=== PATIENT | male | born 1955 | race Caucasian/White ===

== ENCOUNTER 2017-06-27 10:56 | Inpatient (IN) ==
[2017-06-27 12:04] LABS: Basophils # 0.1 K/mcL (0.0-0.2); Basophils % 0.8 %; Eosinophils # 0.3 K/mcL (0.0-0.6); Eosinophils % 3.3 %; Hematocrit 39.8 % (37.5-50.1); Hemoglobin 12.9 g/dL (12.9-16.9); Immature Granulocytes % 0.3 % (0-4); Lymphocytes # 2.4 K/mcL (0.6-4.6); Lymphocytes % 29.7 %; Mean Corpuscular HGB Conc 32.4 g/dL (31.6-35.5); Mean Corpuscular Hemoglobin 29.7 pg (28.0-33.3); Mean Corpuscular Volume 91.7 fL (83.0-100.0); Mean Platelet Volume 9.8 fL (9.4-12.4); Monocytes # 0.6 K/mcL (0.0-1.3); Monocytes % 7.5 %; Neutrophils # 4.6 K/mcL (1.6-8.9); Platelet Count 251 K/mcL (140-400); Red Blood Count 4.34 M/mcL (4.19-5.50); Red Cell Distribution Width 13.3 % (11.5-14.5); Segmented Neutrophils % 58.4 %
[2017-06-27 12:06] LABS: Prothrombin Time 11.1 Seconds (9.4-12.1)
--- NOTE | 2017-06-27 12:06 | Emergency Department Note ---
Disposition Clinical Impression: Inability to walk, Spinal stenosis, lumbar region Disposition: Admitted As Inpatient Condition: Good Referrals: Koffi Bustamante DO [Primary Care Provider] - Forms: ED Satisfaction Letter Time of Disposition: 17:33 Fall HPI - General Chief Complaint: ED Fall Stated Complaint: fall Time Seen by Provider: 06/27/17 11:01 Source: patient, EMS Mode of arrival: EMS Limitations: no limitations Nursing Notes Reviewed: Yes Vital Signs Reviewed: Yes - History of Present Illness HPI Narrative: 61 yaer old male presents to the ED s/p falling off his couch and being on the ground since 0300 this morning. He states that he has chronic sciatica and back problems. Most recently her had a fusion of his cervical spine and had a procedure done on his lumbar area as well from a ortho doc from [place]. Since his surgeries in April he has had increased falls and is now walking with a walker and just last night when he went to use the bathroom in a jug while he was in the garage he slipped off the couach and then was no longer able to get up. Amita states that his right leg is heavy and has lost some motor function and his at bedside states that he has a had about 25-30 falls, and before this was ambulatory and it is getting worse He was not found unil 0930 this morning and then brought to the ED. He states tht he is now having some numbness and tinlging in his right arm from his neck. They were trying to get clearance from his insurance for MRI to evaluate his neuro defecits. - Related Data Home Medications Medication Instructions Recorded Confirmed BuPROPion XL (24 HR) [Wellbutrin 450 mg PO DAILY 06/27/17 06/27/17 XL] Cyclobenzaprine [Flexeril] 10 mg PO TID 06/27/17 06/27/17 DULoxetine [Cymbalta] 90 mg PO DAILY 06/27/17 06/27/17 Diclofenac Sodium (24 HR) 100 mg PO DAILY 06/27/17 06/27/17 [Voltaren XR] Fenofibrate Nanocrystallized 145 mg PO DAILY 06/27/17 06/27/17 [Tricor] HYDROcodone/Acet 7.5/325 mg [[place] 1 tab PO TID PRN 06/27/17 06/27/17 7.5-325 mg] [place]-3/Dha/Epa/Fish Oil [Fish Oil 2,000 mg PO DAILY 06/27/17 06/27/17 1,000 mg Softgel] Simvastatin [Zocor] 40 mg PO HS 06/27/17 06/27/17 Allergies Allergy/AdvReac Type Severity Reaction Status Date / Time No Known Allergies Allergy Verified 06/27/17 15:05 Constitutional: Denies: fever, chills, weakness, weight change Eyes: Denies: eye pain, eye discharge, vision change ENT ED: Denies: ear pain, throat pain, dental pain, hearing loss, epistaxis, congestion, dysphagia Cardiovascular: Denies: chest pain, palpitations, dyspnea on exertion, edema, syncope Respiratory: Denies: cough, dyspnea, wheezes, hemoptysis, stridor Gastrointestinal: Denies: abdominal pain, nausea, vomiting, diarrhea, constipation, hematemesis, melena, hematochezia Genitourinary: Denies: urgency, dysuria, frequency, hematuria Musculoskeletal: Reports: back pain, neck pain. Denies: arthralgia, myalgia Integumentary: Denies: rash, abrasion, lesions Neurological: Reports: weakness, numbness, paresthesias. Denies: headache, confusion, vertigo Psychiatric: Denies: anxiety, depression, suicidal thoughts, homicidal thoughts , auditory hallucinations, visual hallucinations Endocrine: Denies: fatigue Hematological/Lymphatic: Denies: easy bleeding, easy bruising Allergic/Immunologic: Denies: facial swelling, urticaria Fall PMH - Past Medical History Medical history: Reports: arthritis Psychiatric history: Reports: no psych history - Social History Smoking Status: Never smoker Alcohol use: Reports: occasionally Drug use: Reports: none Physical Exam - General Limitations: no limitations General appearance: alert, in no apparent distress - Head Head exam: atraumatic, normocephalic, normal inspection - Eye Eye exam: Present: normal appearance, PERRL, EOMI - Expanded Eye Exam Pupils: Left: reactive - ENT ENT exam: normal exam, normal oropharynx, mucous membranes moist - Expanded ENT Exam External ear exam: Present: normal external inspection Mouth exam: Present: normal external inspection Teeth exam: Present: normal inspection Throat exam: Present: normal inspection - Neck Neck exam: Present: normal inspection, full ROM, trachea midline - Chest Chest inspection: Present: normal inspection, symmetric chest wall rise - Respiratory Respiratory exam: Present: normal lung sounds bilaterally - Cardiovascular Cardiovascular exam: Present: regular rate, normal rhythm, normal heart sounds - Abdominal Exam Abdominal exam: Present: soft, Non-Tender. Absent: tenderness, distention, guarding, rebound, rigidity - Extremities Exam Extremities exam: Present: normal inspection, full ROM. Absent: tenderness, pedal edema - Expanded Upper Extremity Exam Shoulder exam: Present: normal inspection, full ROM Arm exam: Present: normal inspection, full ROM Elbow exam: Present: normal inspection, full ROM Forearm/Wrist exam: Present: normal inspection, full ROM Hand exam: Present: normal inspection, full ROM Vascular exam: Normal: capillary refill, radial pulse - Expanded Lower Extremity Exam Hip/Pelvis exam: Present: normal inspection, full ROM Upper leg exam: Present: normal inspection, full ROM Knee exam: Present: normal inspection, full ROM Lower leg exam: Present: normal inspection, full ROM Ankle exam: Present: normal inspection, full ROM Foot/toe exam: Present: normal inspection, full ROM Neurovascular/Tendon exam: Present: normal capillary refill, motor deficit ( decreased reflexes/strength in right lower leg ). Absent: sensory deficit, tendon deficit Gait: other (unable to walk) - Back Exam Back exam: Present: normal inspection, full ROM. Absent: tenderness - Neurological Exam Neurological exam: Present: alert, oriented X3 - Expanded Neurological Exam Patient oriented to: Present: person, place, time Speech: Present: fluid speech Cranial nerves: EOM function (II, III, IV, ): Normal, facial sensation (V): Normal, facial palsy (VII): Normal, gag reflex (IX): Normal, spinal accessory function (XI): Normal, tongue deviation (XII): Normal Cerebellar function: finger to nose: Normal, heel to daugherty: Normal Motor strength - LUE: 4/5 Motor strength - RUE: 3/5 Motor strength - LLE: 4/5 Motor strength - RLE: 3/5 Upper motor neuron exam: heath neglect: Absent bilaterally, pronator drift: Absent bilaterally, Babinski sign: Absent bilaterally, sensory extinction: Absent bilaterally Sensory exam upper extremity: light touch: Normal, pin prick: Normal Sensory exam lower extremity: light touch: Normal, pin prick: Normal DTR: brachioradialis (L): 2+, brachioradialis (R): 1+, patellar (L): 2+, patellar (R): 1+ Coma Scale Eye Opening: Spontaneous Coma Scale Motor Response: Obeys Commands Coma Scale Verbal Response: Oriented Coma Scale Total: 15 - Psychiatric Psychiatric exam: Present: normal affect, normal mood - Skin Skin exam: Present: warm, dry, intact, normal color Course Course Narrative: we will do MR of the entire spine in addiition to labwork to rule ot rhabdo in addition to CT head/neck for trauma eval - Reevaluation(s) Reevaluation #1: updated patinet on results. We are waiting on consult Time: 15:32 - Consultations Consultation #1: discussed case with Ynes (Dr. Loaiza nurse) and he will come down to evaluate patient in the Ed Time: 15:32 Consultation #2: discussed case with Dr. Eddy and he will see patient as consutl with admission to medicine Time: 18:29 Vital Signs Temperature 97.9 F 06/27/17 10:59 Pulse Rate 65 06/27/17 10:59 Respiratory Rate 18 06/27/17 10:59 Blood Pressure 137/86 06/27/17 10:59 O2 Sat by Pulse Oximetry 100 06/27/17 10:59 Temperature 97.9 F 06/27/17 10:59 Pulse Rate 65 06/27/17 10:59 Respiratory Rate 18 06/27/17 10:59 Blood Pressure 137/86 06/27/17 10:59 O2 Sat by Pulse Oximetry 100 06/27/17 10:59 Fall - Lab Data Result diagrams: 06/27/17 11:35 06/27/17 11:35 Lab Results 06/27/17 06/27/17 06/27/17 Range/Units 11:35 11:35 11:35 WBC 7.9 (4.3-11.1) K/mcL RBC 4.34 (4.19-5.50) M/mcL Hgb 12.9 (12.9-16.9) g/dL Hct 39.8 (37.5-50.1) % MCV 91.7 (83.0-100.0) fL MCH 29.7 (28.0-33.3) pg MCHC 32.4 (31.6-35.5) g/dL RDW 13.3 (11.5-14.5) % Plt Count 251 (140-400) K/mcL MPV 9.8 (9.4-12.4) fL Immature Gran % 0.3 (0-4) % Seg Neutrophils % 58.4 % Lymphocytes % 29.7 % Monocytes % 7.5 % Eosinophils % 3.3 % Basophils % 0.8 % Neutrophils # 4.6 (1.6-8.9) K/mcL Lymphocytes # 2.4 (0.6-4.6) K/mcL Monocytes # 0.6 (0.0-1.3) K/mcL Eosinophils # 0.3 (0.0-0.6) K/mcL Basophils # 0.1 (0.0-0.2) K/mcL PT 11.1 (9.4-12.1) Seconds INR 1.0 APTT 29.8 (26.0-36.0) Seconds Sodium (136-145) mEq/L Potassium (3.5-4.5) mEq/L Chloride (98-109) mEq/L Carbon Dioxide (19-29) mEq/L BUN (8-26) mg/dL Creatinine (0.72-1.25) mg/dL Est GFR ( Amer) (> 60) Est GFR (Non-Af Amer) (> 60) BUN/Creatinine Ratio (6-26) Glucose (70-99) mg/dL Calculated Osmolality (280-300) Calcium (8.6-10.8) mg/dL Total Bilirubin (0.2-1.2) mg/dL Direct Bilirubin (0.0-0.5) mg/dL Indirect Bilirubin (0.0-1.2) mg/dL AST (5-34) Units/L ALT (0-55) Units/L Alkaline Phosphatase (38-126) Units/L Creatine Kinase (30-200) Units/L Troponin I (0-0.03) ng/mL B-Natriuretic Peptide < 10 (0-100) pg/mL Serum Total Protein (6.0-8.3) g/dL Albumin (3.5-5.0) g/dL Globulin (2.4-3.5) g/dL Albumin/Globulin Ratio (1.1-2.2) Lipase (8-78) Units/L Urine Color (Yellow) Urine Clarity (Clear) Urine pH (5.0-8.0) pH Units Ur Specific [place] (1.010-1.025) Urine Protein (Neg-Trace) mg/dL Urine Glucose (UA) (Normal) mg/dL Urine Ketones (Negative) mg/dL Urine Blood (Negative) Urine Nitrite (Negative) Urine Bilirubin (Negative) Urine Urobilinogen (Normal) mg/dL Ur Leukocyte Esterase (Negative) Ur Culture Indicated? (NO) 06/27/17 06/27/17 06/27/17 Range/Units 11:35 11:35 12:06 WBC (4.3-11.1) K/mcL RBC (4.19-5.50) M/mcL Hgb (12.9-16.9) g/dL Hct (37.5-50.1) % MCV (83.0-100.0) fL MCH (28.0-33.3) pg MCHC (31.6-35.5) g/dL RDW (11.5-14.5) % Plt Count (140-400) K/mcL MPV (9.4-12.4) fL Immature Gran % (0-4) % Seg Neutrophils % % Lymphocytes % % Monocytes % % Eosinophils % % Basophils % % Neutrophils # (1.6-8.9) K/mcL Lymphocytes # (0.6-4.6) K/mcL Monocytes # (0.0-1.3) K/mcL Eosinophils # (0.0-0.6) K/mcL Basophils # (0.0-0.2) K/mcL PT (9.4-12.1) Seconds INR APTT (26.0-36.0) Seconds Sodium 138 (136-145) mEq/L Potassium 3.8 (3.5-4.5) mEq/L Chloride 102 (98-109) mEq/L Carbon Dioxide 27 (19-29) mEq/L BUN 14 (8-26) mg/dL Creatinine 1.03 (0.72-1.25) mg/dL Est GFR ( Amer) > 60 (> 60) Est GFR (Non-Af Amer) > 60 (> 60) BUN/Creatinine Ratio 14 (6-26) Glucose 96 (70-99) mg/dL Calculated Osmolality 286 (280-300) Calcium 9.8 (8.6-10.8) mg/dL Total Bilirubin 0.3 (0.2-1.2) mg/dL Direct Bilirubin 0.2 (0.0-0.5) mg/dL Indirect Bilirubin 0.1 (0.0-1.2) mg/dL AST 27 (5-34) Units/L ALT 25 (0-55) Units/L Alkaline Phosphatase 58 (38-126) Units/L Creatine Kinase 337 H (30-200) Units/L Troponin I 0.00 (0-0.03) ng/mL B-Natriuretic Peptide (0-100) pg/mL Serum Total Protein 7.6 (6.0-8.3) g/dL Albumin 3.8 (3.5-5.0) g/dL Globulin 3.8 H (2.4-3.5) g/dL Albumin/Globulin Ratio 1.0 L (1.1-2.2) Lipase 11 (8-78) Units/L Urine Color Yellow (Yellow) Urine Clarity Clear (Clear) Urine pH 6.5 (5.0-8.0) pH Units Ur Specific [place] 1.015 (1.010-1.025) Urine Protein Negative (Neg-Trace) mg/dL Urine Glucose (UA) Normal (Normal) mg/dL Urine Ketones Negative (Negative) mg/dL Urine Blood Negative (Negative) Urine Nitrite Negative (Negative) Urine Bilirubin Negative (Negative) Urine Urobilinogen Normal (Normal) mg/dL Ur Leukocyte Esterase Negative (Negative) Ur Culture Indicated? NO (NO) - EKG Data EKG attestation: Yes I reviewed and interpreted this EKG. EKG results narrative: NSR with rate of 67. NO STMEI. normal intervals. no old ekg. 1200
[2017-06-27 12:08] LABS: Activated Partial Thrombo Time 29.8 Seconds (26.0-36.0)
[2017-06-27 12:15] LABS: Alanine Aminotransferase 25 Units/L (0-55); Albumin 3.8 g/dL (3.5-5.0); Alkaline Phosphatase 58 Units/L (38-126); Aspartate Amino Transferase 27 Units/L (5-34); BUN/Creatinine Ratio 14 (6-26); Bilirubin,Direct 0.2 mg/dL (0.0-0.5); Bilirubin,Indirect 0.1 mg/dL (0.0-1.2); Bilirubin,Total 0.3 mg/dL (0.2-1.2); Blood Urea Nitrogen 14 mg/dL (8-26); Calcium 9.8 mg/dL (8.6-10.8); Carbon Dioxide 27 mEq/L (19-29); Chloride 102 mEq/L (98-109); Creatine Kinase 337 Units/L (30-200); Globulin 3.8 g/dL (2.4-3.5); Glucose 96 mg/dL (70-99); Lipase 11 Units/L (8-78); Osmolality,Calculated 286 (280-300); Potassium 3.8 mEq/L (3.5-4.5); Sodium 138 mEq/L (136-145); Total Protein 7.6 g/dL (6.0-8.3); eGFR For African Americans > 60 (> 60); eGFR For Non-African Americans > 60 (> 60)
[2017-06-27 12:20] LABS: Bilirubin,Urine Negative (Negative); Blood,Urine Negative (Negative); Clarity,Urine Clear (Clear); Color,Urine Yellow (Yellow); Glucose,Urine (UA) Normal (Normal); Ketones,Urine Negative (Negative); Leukocyte Esterase,Urine Negative (Negative); Nitrite,Urine Negative (Negative); PH,Urine 6.5 pH Units (5.0-8.0); Protein,Urine Negative (Neg-Trace); Specific Gravity,Urine 1.015 (1.010-1.025); Urobilinogen,Urine Normal (Normal)
[2017-06-27] MEDS ORDERED: *HR* Morphine 2 MG/ML SYRINGE IVP ONE (17:32)
--- NOTE | 2017-06-27 21:16 | Internal Med History&Physical ---
<Koffi Delacruz - Last Filed: 06/28/17 04:22> Date of Encounter: 06/28/17 Time of Encounter: 21:00 Assessment and Plan (1) Inability to walk Current visit: Yes Status: Acute Patient does report that he has been having LE weakness for sometime, but that he has an acute worsening recently. He had previously used a walked in order to ambulate, but recently he has been unable to walk at all, even with his walker. He reports that he had a dall last night in which he could not get up and was on the ground for 7 hours. He had recently undergone a surgery in [place] in order to address some of the disk protrusion at that time, but he as continued to have problems. IMPRESSION: No substantial interval change from 05/23/2017. A large disc extrusion at postoperative level of L4-5 results in severe spinal canal stenosis. There is severe bilateral L4 foraminal narrowing. Dr. Eddy was contacted by the ER and he agreed to see the patient will consult neurology Will consult PT/OT (2) Spinal stenosis, lumbar region Current visit: Yes Status: Acute Plan as above (3) Numbness and tingling in both hands Current visit: Yes Status: Acute Patient reports numbness in both hands. Though he reports that this has happened before on account of his spinal stenosis at C3-4 and C4-5 and previous fusions in his cervical spine, he does report that this has been getting worse recently. MRI of his spine showed minimally progressed severe stenosis in the previously affected regions. Plan as above (4) ETOH abuse Current visit: Yes Status: Acute Patient reports drinking 6 beera a day for some time. Will give PO vitamins Start on ativan based CIWA protocol (5) DVT prophylaxis Current visit: Yes Status: Acute Mechanical dvt prophylaxis with intermitten penumatic compression devices (6) Depression Current visit: Yes Status: Chronic Continue home medications Qualifiers: Depression Type: unspecified Qualified Code(s): F32.9 - Major depressive disorder, single episode, unspecified Internal Medicine - H&P: HPI Chief complaint: Inability to walk, worsening neurological symptoms Admitted From: Home Plans for Post Hospital Care: Home History of present illness: Mr. Collado is a 61 year old male with medical history of disk herniations requiring previous cervical spine fusions (15 years ago with additional fusion following later), depression, and osteoarthritis who presents to [facility] after having a fall with inability to walk at home. 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 This is not the first time he has had these symtpoms in his hand, but it is the worst. He states that it had happened about 10 years ago. He has some weakness and decreased sensation in his lower extremities and uses a walker to ambulate, but he can no longer support himself with his walker. He fell last night and was on the floor for 7 hours. He states the weakness extends into his proximal LE muscles. He reports that 4 months ago he had some "clean up" of his spine at a hospital in [place]. He denies having saddle numbness or incontinence. He reports that he has been healthy otherwise with no other major symptoms. Past Med Surg Social Fam HX - Past Medical History Medical history: arthritis Psychiatric history: depression - Social History Smoking Status: Never smoker Smokeless Tobacco Status: No Alcohol use: occasionally Drug use: none - Family History Father Living Status: Cause of : Cancer (stomach) Hx Family Cancer: Yes Mother Living Status: Cause of : Stroke Internal Medicine - H&P: Meds BuPROPion XL (24 HR) [Wellbutrin XL] 450 mg PO DAILY 06/27/17 [History] Cyclobenzaprine [Flexeril] 10 mg PO TID 06/27/17 [History] DULoxetine [Cymbalta] 90 mg PO DAILY 06/27/17 [History] Diclofenac Sodium (24 HR) [Voltaren XR] 100 mg PO DAILY 06/27/17 [History] Fenofibrate Nanocrystallized [Tricor] 145 mg PO DAILY 06/27/17 [History] HYDROcodone/Acet 7.5/325 mg [[place] 7.5-325 mg] 1 tab PO TID PRN 06/27/17 [ History] [place]-3/Dha/Epa/Fish Oil [Fish Oil 1,000 mg Softgel] 2,000 mg PO DAILY 06/27/17 [History] Simvastatin [Zocor] 40 mg PO HS 06/27/17 [History] 3 Allergy/AdvReac Type Severity Reaction Status Date / Time No Known Allergies Allergy Verified 06/27/17 15:05 Review of systems: Gen: Denies fever, denies chills, denies weakness, denies fatigue CV: Denies chest pain, denies exertional chest pain or dyspnea, denies palpitations Resp: Denies shortness of breath, denies dyspnea, denies pleuritic pain, denies coughing GI: Denies nausea, denies vomiting, denies abdominal pain, denies constipation, denies diarrhea, denies hematochezia, denies melena MSK: denies arthralgia, reports muscle weakness Neuro: Denies headache, denies confusion, reports focal weakness as above, reports numbness/tingling, denies vision changes Skin: Denies bruising, denies rash, reports jigger bites to right lower extremity : Denies flank pain, denies dysuria, denies hematuria - Constitutional Vitals: Temp Pulse Resp BP Pulse Ox 98.3 F 83 16 140/86 94 06/27/17 19:53 06/27/17 19:53 06/27/17 19:53 06/27/17 19:53 06/27/17 19:53 Exam: General: Cooperative, pleasant, no acute distress, alert and oriented 3, answers questions appropriately HEENT: Normocephalic, atraumatic, neck supple, trachea midline, Conjunctiva pink , sclera anicteric, EOMI, PERRL, oral mucosa moist, no orophargeal erythema or exudates Respiratory: No accessory muscle usage, clear to auscultation bilaterally, no wheezes/rhonchi/rales appreciated Cardiovascular: Regular rate and rhythm, S1 and S2 present, no murmurs/rubs/ gallops/clicks appreciated GI/abdominal: Nondistended, nontender, soft, normal bowel sounds, no peritoneal signs Extremities: No calf tenderness, noncyanotic, no pedal edema appreciated, warm, lower extremity pulses palpable and symmetrical Neurological: Alert and oriented 3, no facial droop, no focal deficits, cranial nerves II through XII grossly intact without deficits, 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 Collado is a 61 year old male All Systems PM: A 10-system review of systems was performed and is negative for pertinent findings except as documented above in the HPI. - Constitutional Vitals: Temp Pulse Resp BP Pulse Ox 98.0 F 71 16 114/66 96 06/28/17 04:51 06/28/17 04:51 06/28/17 04:51 06/28/17 04:51 06/28/17 04:51 Internal Med - H&P Results - Labs CBC & Chem 7: 06/27/17 11:35 06/27/17 11:35 - Attending Attestation I examined this patient and my medical decision-making was reviewed with the Resident Physician. I agree with the documented findings, disposition and treatment plan as described except to the extent set forth below. Patient is a 61-year-old male with past medical history of chronic back pain, degenerative disc disease, arthritis and depression. He presents to the ED with complaints of back pain, inability to walk and numbness and tingling of both hands. MRI of the spine revealed large disc extrusion at postop level of L4-L5, with severe spinal stenosis. Patient also has severe bilateral L4 foraminal narrowing. His numbness and tingling of both hands likely due to cervical spinal stenosis. Orthopedics will evaluate patient in the morning. Continue [place] for back pain and Flexeril as needed for muscle spasm. Patient has no other complaints at this time. Heart rate 71, blood pressure 114/66, O2 sat 96 on room air. Heart S1-S2 positive. Lungs bilateral good entry. Abdomen soft nontender no muscle guarding. Extremities audible stridor, no edema. Patient is awake and alert and able to provide history.
[2017-06-27] MEDS ORDERED: Acetaminophen 325 MG TABLET PO PRN (21:19)
[2017-06-27] MEDS ORDERED: Naloxone 0.4 MG/ML INJ IVP PRN (21:19)
[2017-06-27] MEDS ORDERED: Ondansetron 4 MG/2 ML VIAL IVP PRN (21:19)
[2017-06-27] MEDS ORDERED: *HR* LORazepam 2 MG/ML VIAL IVP PRN ×3 (21:21)
[2017-06-27] MEDS: 0.9 % Sodium Chloride 1,000 ML IVC SCH (22:16)
[2017-06-27] MEDS: Vitamin B Complex/Vit C/Vit E 1 EACH TABLET PO SCH (22:16)
[2017-06-27] MEDS ORDERED: Thiamine (B-1) 100 MG in D5% in Water 50 ML IVPB SCH (23:45)
[2017-06-28] MEDS: *HR* HYDROcodone/Acet 7.5/325 mg TABLET PO PRN ×2 (04:18→15:02)
[2017-06-28] MEDS: BuPROPion XL (24 HR) 150 MG TABLET PO SCH (08:04)
[2017-06-28] MEDS: Fenofibrate 54 MG TABLET PO SCH (08:05)
[2017-06-28] MEDS: Diclofenac Sodium (24 HR) 100 MG TABLET PO SCH (08:05)
[2017-06-28] MEDS: Folic Acid 1 MG TABLET PO SCH (08:05)
[2017-06-28] MEDS: Vitamin B Complex/Vit C/Vit E 1 EACH TABLET PO SCH (08:05)
[2017-06-28] MEDS: (Omega-3/Dha/Epa/Fish Oil [Fish Oil 1,000 Mg Softgel]) PO SCH (08:06)
--- NOTE | 2017-06-28 10:54 | Internal Med Progress Note ---
Date of Encounter: 06/28/17 Time of Encounter: 10:51 - Assessment and plan (1) Ambulatory dysfunction Current Visit: Yes Status: Acute Assessment and plan: Reviewed MRI of Cervical, Thorasic and Lumbar spines mostly due to severe spinal stenosis in both Cervical and Lumbar spine region s/p recent Cervical spinal fusion and Lumbar laminectomry will obtain records from [place], [place] waiting on out Surgeon Dr. Surjit carrasco Cont anti spasmodic and analgesics (2) Numbness and tingling in both hands Current Visit: Yes Status: Acute Assessment and plan: see above (3) Spinal stenosis, lumbar region Current Visit: Yes Status: Acute Assessment and plan: see above (4) Cervical spinal stenosis Current Visit: Yes Status: Acute Assessment and plan: see above (5) Alcohol dependence Current Visit: Yes Status: Acute Assessment and plan: Had last alcohol 4 days ago cont CIWA protocol..close monitoring Counseled to quit drinking cont banana bag for now Qualifiers: Qualified Code(s): F10.20 - Alcohol dependence, uncomplicated (6) DVT prophylaxis Current Visit: Yes Status: Acute Assessment and plan: on SCD's (7) Depression Current Visit: Yes Status: Chronic Assessment and plan: resumed home meds Qualifiers: Depression Type: unspecified Qualified Code(s): F32.9 - Major depressive disorder, single episode, unspecified - Subjective Interval history: Mr. Collado is a 61 year old male with medical history of disk herniations requiring previous cervical spine fusions (15 years ago with additional fusion following later), depression, and osteoarthritis who presents to [place] after having a fall with inability to walk at home. 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 This is not the first time he has had these symptoms in his hand, but it is the worst. He states that it had happened about 10 years ago. He has some weakness and decreased sensation in his lower extremities and uses a walker to ambulate, but he can no longer support himself with his walker. He fell last night and was on the floor for 7 hours. He states the weakness extends into his proximal LE muscles. He denies having saddle numbness or incontinence. Pt was admitted here for severe low back pain with weakness in Rt leg. He did mention he has Cervical fusion surgery done in February 2017 at [place], [place] also had Lumbar laminectomy a month later at same institute. However his pain and weakness seems to be still the same, no improvement noticed. Pt also sated he drinks alcohol on daily basis, 6 beers / day, had last alcohol 4 days ago. Denied any CP / SOB - Constitutional Vitals: Temp Pulse Resp BP Pulse Ox 97.8 F 87 16 109/58 96 06/28/17 09:50 06/28/17 09:50 06/28/17 09:50 06/28/17 09:50 06/28/17 09:50 General appearance: Present: mild distress (with pain), A&O X 3, answers questions appropriately - Head Head exam: Present: atraumatic, normal inspection - Respiratory Respiratory exam: Present: decreased breath sounds. Absent: rales, respiratory distress, rhonchi, wheezes - Cardiovascular Cardiovascular exam: Present: RRR, +S1, +S2. Absent: diastolic murmur, gallop, rubs, systolic murmur - GI/Abdominal GI/Abdominal exam: Present: normal bowel sounds, soft, no peritoneal signs. Absent: distended, tenderness - Extremities Exam Extremities exam: Absent: calf tenderness, pedal edema, tenderness - Back Exam Back exam: Absent: CVA tenderness (L), CVA tenderness (R) Additional comments: nicely healed surgical scar over lumbar region - Neurological Exam Neurological exam: Present: alert, motor sensory deficit (in Both Rt UE and Rt leg), oriented X3. Absent: strengths equal and symetr throughout, facial droop , speech deficit - Psychiatric Psychiatric exam: Present: normal affect, normal mood Internal Medicine: Result - Labs CBC & Chem 7: 06/27/17 11:35 06/27/17 11:35 - ABG Interpretation ABG results: PT/INR, D-dimer PT 11.1 Seconds (9.4-12.1) 06/27/17 11:35 - VTE Documentation of Mechanical Device: Intermittent pneumatic compression device Consult Discharge Plan - Plan Referrals: Koffi Bustamante DO [Primary Care Provider] -
--- NOTE | 2017-06-28 12:06 | Electrocardiograph Report ---
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
[2017-06-28] MEDS: *HR* Morphine 2 MG/ML SYRINGE IVP PRN (12:41)
--- NOTE | 2017-06-28 16:38 | Neurology - Consult Note ---
Date of Encounter: 06/28/17 Time of Encounter: 16:30 Assessment and Plan (1) Cervical disc disease with myelopathy Current Visit: Yes Status: Acute s/p cervical spinal fusion surgery x2, with evidence of spinal compression at the level of C4-C5, clinical symptoms and signs of cervical myelopathy with bilateral arm/hand/ weakness as well as long tract signs, with brisk DTRs and positive Babinski signs. Needs orthopedic evaluation and intervention (2) Lumbar disc disease with radiculopathy Current Visit: Yes Status: Acute large herniated disc at the level of L4-L5 causing significant spinal canal stenosis, which can contribute to his leg weakness as well. Both myelopathy and lumbar radiculopathy are contributing with uncertain degree of contribution. Also needs orthopedic evaluation and intervention in my opinion. Ortho Dr Antonio Eddy is onboard and will defer his expertise for further treatment options. Continue medical and supportive care History of Present Illness Chief complaint: weakness in hands, paresthesia and difficulty walking HPI: Mr. Collado is a 61 year old male with PMH significant for s/p cervical spinal fusion x2 ( 15 years ago, and March/2017) , s/p lumbar spinal surgery (february/2017) who developed increasing weakness paresthesia involving his arms and hands and both legs are weak and he is hardly able to walk. Patient apparently had his first cervical spine surgery 15 years ago. few months ago he developed some weakness and sciatica pain to his legs and was found to have lumbar disc herniation. During the evaluation process he was also found to have cervical disc disease. He subsequently had lumbar spine surgery 4 months ago by orthpedic surgery and then in March/2017 he had cervical spine surgery by a different surgeon at [facility], name unknow. Since then he has been experiencing increasing hand weakness, leg weakness to the point that he could hardly walk. He developed numbness in both hands and could not feel temperature of hot water. Denies bowel and bladder dysfunction however. MRI of cervical and lumbar spine and thoracic spine completed. MR/MR cervical spine wo con IMPRESSION: Severe spinal canal stenosis at C4-5 appears minimally progressed from 05/23/2017. AP dimension of the spinal canal measures 5 mm at midline. Persistent abnormal cord signal abnormality at this level, edema versus myelomalacia. Unchanged borderline cord compression at C3-4. MR/MR lumbar spine wo con IMPRESSION: No substantial interval change from 05/23/2017. A large disc extrusion at postoperative level of L4-5 results in severe spinal canal stenosis. There is severe bilateral L4 foraminal narrowing. Past Med Surg Social Fam HX - Past Medical History Medical history: arthritis Psychiatric history: depression - Social History Smoking Status: Never smoker Smokeless Tobacco Status: No Alcohol use: occasionally Drug use: none - Family History Father Living Status: Cause of : Cancer (stomach) Hx Family Cancer: Yes Mother Living Status: Cause of : Stroke Medications and Allergies BuPROPion XL (24 HR) [Wellbutrin XL] 450 mg PO DAILY 06/27/17 [History] Cyclobenzaprine [Flexeril] 10 mg PO TID 06/27/17 [History] DULoxetine [Cymbalta] 90 mg PO DAILY 06/27/17 [History] Diclofenac Sodium (24 HR) [Voltaren XR] 100 mg PO DAILY 06/27/17 [History] Fenofibrate Nanocrystallized [Tricor] 145 mg PO DAILY 06/27/17 [History] HYDROcodone/Acet 7.5/325 mg [[place] 7.5-325 mg] 1 tab PO TID PRN 06/27/17 [ History] [place]-3/Dha/Epa/Fish Oil [Fish Oil 1,000 mg Softgel] 2,000 mg PO DAILY 06/27/17 [History] Simvastatin [Zocor] 40 mg PO HS 06/27/17 [History] 3 Allergy/AdvReac Type Severity Reaction Status Date / Time No Known Allergies Allergy Verified 06/27/17 15:05 All Systems: A 10-system review of systems was performed and is negative for pertinent findings except as documented above in the HPI. Physical Examination - Vital Signs Vital Signs: Initial Vital Signs Temp Pulse Resp BP Pulse Ox 97.9 F 65 18 137/86 100 06/27/17 10:59 06/27/17 10:59 06/27/17 10:59 06/27/17 10:59 06/27/17 10:59 - Constitutional General appearance: comfortable - Neurologic Sensorimotor examination: other (Stocking, glove pattern of sensory loss noted, bilaterally. ) Motor examination - right side: 4/5: deltoids, biceps, triceps, wrist flexion, wrist extension, contract coordinator, hip flexors, tibialis Anterior, quadriceps, toe extension (EHL), plantarflexion Motor examination - left side: 4/5: deltoids, biceps, triceps, wrist flexion, wrist extension, hip flexors, contract coordinator, quadriceps, tibialis Anterior, toe extension (EHL), plantarflexion Detailed sensory examination: other (Stocking and glove pattern of sensory loss noted) Posture: other (one) Reflexes: Biceps: 3+, Triceps: 3+, Brachioradialis: 3+, Patella: 3+, Achilles: 3 + Mental Status Examination: awake, alert, oriented to person, oriented to place, oriented to time, follows commands appropriately, answers questions appropriately, no agnosia, no aphasia, no aproxia Cranial nerve examination: PERRL, EOMI, visual roberson intact, corneal reflexes brisk symmetrically, sensory to face intact, mastication intact, no facial asymmetry is present, no dysarthria, hearing is intact symmetrically, soft palate elevates bilaterally upon phonation, gag reflex intact, flexes SCM and trapezius muscles symmetrically with full power, tongue protrudes midline, no atrophy or facial fasiculations present Results - Laboratory Findings CBC and BMP: 06/27/17 11:35 06/27/17 11:35 Abnormal lab findings: Abnormal lab results Creatine Kinase 337 Units/L (30-200) H 06/27/17 11:35 Globulin 3.8 g/dL (2.4-3.5) H 06/27/17 11:35 Albumin/Globulin Ratio 1.0 (1.1-2.2) L 06/27/17 11:35 Consult Discharge Plan - Plan Referrals: Koffi Bustamante DO [Primary Care Provider] -
[2017-06-28] MEDS ORDERED: Thiamine (B-1) 100 MG in D5% in Water 50 ML IVPB SCH (18:00)
[2017-06-29] MEDS: 0.9 % Sodium Chloride 1,000 ML IVC SCH (01:06)
[2017-06-29 04:45] LABS: Basophils # 0.1 K/mcL (0.0-0.2); Basophils % 0.9 %; Eosinophils # 0.3 K/mcL (0.0-0.6); Eosinophils % 4.6 %; Hematocrit 36.2 % (37.5-50.1); Immature Granulocytes % 0.2 % (0-4); Lymphocytes # 2.5 K/mcL (0.6-4.6); Lymphocytes % 44.9 %; Mean Corpuscular HGB Conc 33.1 g/dL (31.6-35.5); Mean Corpuscular Hemoglobin 31.3 pg (28.0-33.3); Mean Corpuscular Volume 94.5 fL (83.0-100.0); Mean Platelet Volume 10.2 fL (9.4-12.4); Monocytes # 0.5 K/mcL (0.0-1.3); Monocytes % 8.5 %; Neutrophils # 2.3 K/mcL (1.6-8.9); Platelet Count 210 K/mcL (140-400); Red Blood Count 3.83 M/mcL (4.19-5.50); Red Cell Distribution Width 13.3 % (11.5-14.5); Segmented Neutrophils % 40.9 %
[2017-06-29 05:00] LABS: Alanine Aminotransferase 19 Units/L (0-55); Albumin 3.1 g/dL (3.5-5.0); Albumin/Globulin Ratio 0.9 (1.1-2.2); Alkaline Phosphatase 54 Units/L (38-126); Aspartate Amino Transferase 20 Units/L (5-34); BUN/Creatinine Ratio 15 (6-26); Bilirubin,Total 0.2 mg/dL (0.2-1.2); Blood Urea Nitrogen 17 mg/dL (8-26); Calcium 9.2 mg/dL (8.6-10.8); Carbon Dioxide 28 mEq/L (19-29); Chloride 104 mEq/L (98-109); Globulin 3.3 g/dL (2.4-3.5); Glucose 96 mg/dL (70-99); Magnesium 1.7 mg/dL (1.6-2.6); Osmolality,Calculated 285 (280-300); Potassium 3.9 mEq/L (3.5-4.5); Sodium 137 mEq/L (136-145); Total Protein 6.4 g/dL (6.0-8.3); eGFR For African Americans > 60 (> 60); eGFR For Non-African Americans > 60 (> 60)
[2017-06-29] MEDS: Diclofenac Sodium (24 HR) 100 MG TABLET PO SCH (08:30)
[2017-06-29] MEDS: BuPROPion XL (24 HR) 150 MG TABLET PO SCH (08:30)
[2017-06-29] MEDS: Folic Acid 1 MG TABLET PO SCH (08:30)
[2017-06-29] MEDS: Fenofibrate 54 MG TABLET PO SCH (08:30)
[2017-06-29] MEDS: Vitamin B Complex/Vit C/Vit E 1 EACH TABLET PO SCH (08:30)
[2017-06-29] MEDS: (Omega-3/Dha/Epa/Fish Oil [Fish Oil 1,000 Mg Softgel]) PO SCH (08:31)
[2017-06-29] MEDS: *HR* HYDROcodone/Acet 7.5/325 mg TABLET PO PRN (08:35)
[2017-06-29] MEDS: *HR* Morphine 2 MG/ML SYRINGE IVP PRN ×2 (09:51→14:21)
--- NOTE | 2017-06-29 11:23 | Internal Med Progress Note ---
Date of Encounter: 06/29/17 Time of Encounter: 11:20 - Assessment and plan (1) Ambulatory dysfunction Current Visit: Yes Status: Acute Assessment and plan: Reviewed MRI of Cervical, Thoracic and Lumbar spines mostly due to severe spinal stenosis in both Cervical and Lumbar spine region s/p recent Cervical spinal fusion and Lumbar laminectomry will obtain records from [place], [place] Our Surgeon Dr. Eddy did evaluated the pt and scheduled for surgery ( Cervical spinal fusion ) on Sunday Cont anti spasmodic and analgesics (2) Numbness and tingling in both hands Current Visit: Yes Status: Acute Assessment and plan: see above (3) Spinal stenosis, lumbar region Current Visit: Yes Status: Acute Assessment and plan: see above (4) Cervical spinal stenosis Current Visit: Yes Status: Acute Assessment and plan: see above (5) Alcohol dependence Current Visit: Yes Status: Acute Assessment and plan: Had last alcohol 4 days prior to hospitlaization not in active withdrawal symptoms now cont CIWA protocol..close monitoring Counseled to quit drinking on PO thiamine , MVT and Folic acid on PO Ativan PRN Qualifiers: Qualified Code(s): F10.20 - Alcohol dependence, uncomplicated (6) DVT prophylaxis Current Visit: Yes Status: Acute Assessment and plan: on SCD's (7) Depression Current Visit: Yes Status: Chronic Assessment and plan: resumed home meds Qualifiers: Depression Type: unspecified Qualified Code(s): F32.9 - Major depressive disorder, single episode, unspecified - Subjective Interval history: Mr. Collado is a 61 year old male with medical history of disk herniations requiring previous cervical spine fusions (15 years ago with additional fusion following later), depression, and osteoarthritis who presents to [facility] after having a fall with inability to walk at home. 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 This is not the first time he has had these symptoms in his hand, but it is the worst. He states that it had happened about 10 years ago. He has some weakness and decreased sensation in his lower extremities and uses a walker to ambulate, but he can no longer support himself with his walker. He fell last night and was on the floor for 7 hours. He states the weakness extends into his proximal LE muscles. He denies having saddle numbness or incontinence. Pt was admitted here for severe low back pain with weakness in Rt leg. He did mention he has Cervical fusion surgery done in February 2017 at [place], [place] also had Lumbar laminectomy a month later at same institute. However his pain and weakness seems to be still the same, no improvement noticed. Pt also sated he drinks alcohol on daily basis, 6 beers / day, had last alcohol 4 days ago. Denied any CP / SOB. Stated overall he feels little better today - Constitutional Vitals: Temp Pulse Resp BP Pulse Ox 97.7 F 93 16 104/57 98 06/29/17 07:50 06/29/17 07:50 06/29/17 07:50 06/29/17 07:50 06/29/17 07:50 General appearance: Present: A&O X 3, answers questions appropriately - Head Head exam: Present: atraumatic, normal inspection - Respiratory Respiratory exam: Present: decreased breath sounds. Absent: rales, respiratory distress, rhonchi, wheezes - Cardiovascular Cardiovascular exam: Present: RRR, +S1, +S2. Absent: diastolic murmur, gallop, rubs, systolic murmur - GI/Abdominal GI/Abdominal exam: Present: normal bowel sounds, soft, no peritoneal signs. Absent: distended, tenderness - Extremities Exam Extremities exam: Absent: calf tenderness, pedal edema, tenderness - Neurological Exam Neurological exam: Present: alert, CN II-XII intact, motor sensory deficit ( both UE RT > Lt), oriented X3. Absent: facial droop, speech deficit - Psychiatric Psychiatric exam: Present: normal affect, normal mood Internal Medicine: Result - Labs CBC & Chem 7: 06/29/17 04:02 06/29/17 04:02 Labs: Short CBC 06/29/17 Range/Units 04:02 WBC 5.7 (4.3-11.1) K/mcL Hgb 12.0 L (12.9-16.9) g/dL Hct 36.2 L (37.5-50.1) % Plt Count 210 (140-400) K/mcL Neutrophils # 2.3 (1.6-8.9) K/mcL BMP 06/29/17 04:02 Sodium 137 Potassium 3.9 Chloride 104 Carbon Dioxide 28 BUN 17 Creatinine 1.12 Glucose 96 Calcium 9.2 Liver Function 06/29/17 Range/Units 04:02 Total Bilirubin 0.2 (0.2-1.2) mg/dL AST 20 (5-34) Units/L ALT 19 (0-55) Units/L Alkaline Phosphatase 54 (38-126) Units/L Albumin 3.1 L (3.5-5.0) g/dL - ABG Interpretation ABG results: PT/INR, D-dimer PT 11.1 Seconds (9.4-12.1) 06/27/17 11:35 - Impressions Impressions Cervical Spine X-Ray 06/28/17 13:26 IMPRESSION: Stable anterior cervical fusion and discectomy. D/ / 06/28/2017 15:30:34 Douglas Moreno MD / [facility] Interpreting Provider: Douglas Moreno MD - VTE Documentation of Mechanical Device: Intermittent pneumatic compression device Consult Discharge Plan - Plan Referrals: Koffi Bustamante DO [Primary Care Provider] -
--- NOTE | 2017-06-29 14:24 | Spinal Consult Note ---
Date of Encounter: 06/29/17 Time of Encounter: 14:21 Assessment and Plan (1) Cervical myelopathy Current Visit: Yes Status: Chronic On examination he is lying comfortably in bed in no acute distress. Afebrile vital signs stable. He has a positive Cortney sign. He has positive Babinski. He has hand spasticity. He has decreased sensation in the distal upper extremities. He has a positive inverted radial reflex. His hips move symmetrically. AP and lateral views of the cervical spine reveal multilevel degenerative changes. There is an anterior cervical plate and fusion from C5-C7. There is a stand-alone interbody device at C4-5. MRI of the cervical spine reveals postsurgical changes anteriorly C4-C7. There are multilevel degenerative changes. There is severe stenosis with resultant spinal cord compression at C4-5. Impression: 1) Severe cervical stenosis with cord compression C4-5 2) cervical myelopathy 3) history of cervical fusion 2 with hardware at C4-5 and C5-C7 anteriorly. Plan: Due to his neurologic decline and likelihood for permanent or progressive neurologic injury find it reasonable to consider surgery in the form of an anterior cervical decompression and fusion C4-5 with removal of hardware and exploration of fusion. He may also require a posterior cervical fusion C4-C7 if there are any issues with instrumentation and decompression anteriorly. Risks benefits possible consultations and alternatives were discussed and the patient would like to proceed. He will require medical optimization and clearance measures prior to surgical intervention which we will plan for Sunday. He requires special hardware instrumentation removal devices to be transported which preclude immediate intervention. History of Present Illness Chief complaint: Difficulty controlling hands, difficulty walking, numbness in hands HPI: Mr. Collado is a 61 year old male who complains of progressive difficulty walking, weakness in the upper extremities, numbness in the bilateral upper extremities, and difficulty with fine motor tasks. He has a history of anterior cervical fusion surgery the first being 15 years ago where he had a cervical fusion from C5-C7 and most recently in May in [facility] at C4-5. He states he did not get any improvement in his symptoms and in fact they have worsened so he was brought to [place] [facility] for evaluation. Neurology consultation confirmed severe stenosis and findings consistent with myelopathy. We are asked to see for definitive management. He denies bowel bladder symptomatology, fevers or chills. Past Med Surg Social Fam HX - Past Medical History Medical history: arthritis Psychiatric history: depression - Social History Smoking Status: Never smoker Smokeless Tobacco Status: No Alcohol use: occasionally Drug use: none - Family History Father Living Status: Cause of : Cancer (stomach) Hx Family Cancer: Yes Mother Living Status: Cause of : Stroke Medications and Allergies BuPROPion XL (24 HR) [Wellbutrin XL] 450 mg PO DAILY 06/27/17 [History] Cyclobenzaprine [Flexeril] 10 mg PO TID 06/27/17 [History] DULoxetine [Cymbalta] 90 mg PO DAILY 06/27/17 [History] Diclofenac Sodium (24 HR) [Voltaren XR] 100 mg PO DAILY 06/27/17 [History] Fenofibrate Nanocrystallized [Tricor] 145 mg PO DAILY 06/27/17 [History] HYDROcodone/Acet 7.5/325 mg [[place] 7.5-325 mg] 1 tab PO TID PRN 06/27/17 [ History] [place]-3/Dha/Epa/Fish Oil [Fish Oil 1,000 mg Softgel] 2,000 mg PO DAILY 06/27/17 [History] Simvastatin [Zocor] 40 mg PO HS 06/27/17 [History] 3 Allergy/AdvReac Type Severity Reaction Status Date / Time No Known Allergies Allergy Verified 06/27/17 15:05 Results - Labs Result Diagrams: 06/29/17 04:02 06/29/17 04:02 Labs: Abnormal lab results RBC 3.83 M/mcL (4.19-5.50) L 06/29/17 04:02 Hgb 12.0 g/dL (12.9-16.9) L 06/29/17 04:02 Hct 36.2 % (37.5-50.1) L 06/29/17 04:02 Creatine Kinase 337 Units/L (30-200) H 06/27/17 11:35 Albumin 3.1 g/dL (3.5-5.0) L 06/29/17 04:02 Albumin/Globulin Ratio 0.9 (1.1-2.2) L 06/29/17 04:02 H & H 06/29/17 Range/Units 04:02 Hgb 12.0 L (12.9-16.9) g/dL Hct 36.2 L (37.5-50.1) % All other labs normal. Consult Discharge Plan - Plan Referrals: ColopyKoffi DO [Primary Care Provider] -
--- NOTE | 2017-06-29 19:41 | Anesthesia Evaluation PreOp ---
Date of Encounter: 06/29/17 Time of Encounter: 20:39 - Past History Planned Operation: ACDF C4-5 Cardiac History: Hyperlipidemia Pulmonary History: Denies Any Significant HX CLOTH FEEDER History: Other (cervical myelopathy s/p cervical fusion x 2, hand spasticity , involvement of all 4 extremities (weakness, numbness, and pain); symptoms worse on the R; R leg and R arm are very weak) Other Medical History: Other (arthritis, falls due to neurological symptoms) Anesthesia History: No Prior Anesthetic Complications, Past Anesthesia ( cervical fusion x 2 (C4-5 and 5-7 anteriorly)) Alcohol Use: occasionally Drug use: none Medications and Allergies BuPROPion XL (24 HR) [Wellbutrin XL] 450 mg PO DAILY 06/27/17 [History] Cyclobenzaprine [Flexeril] 10 mg PO TID 06/27/17 [History] DULoxetine [Cymbalta] 90 mg PO DAILY 06/27/17 [History] Diclofenac Sodium (24 HR) [Voltaren XR] 100 mg PO DAILY 06/27/17 [History] Fenofibrate Nanocrystallized [Tricor] 145 mg PO DAILY 06/27/17 [History] HYDROcodone/Acet 7.5/325 mg [[place] 7.5-325 mg] 1 tab PO TID PRN 06/27/17 [ History] [place]-3/Dha/Epa/Fish Oil [Fish Oil 1,000 mg Softgel] 2,000 mg PO DAILY 06/27/17 [History] Simvastatin [Zocor] 40 mg PO HS 06/27/17 [History] 3 Allergy/AdvReac Type Severity Reaction Status Date / Time No Known Allergies Allergy Verified 06/27/17 15:05 - Meds/Allergy Pre-op Review Medications Reviewed: Yes Allergies Reviewed: Yes Beta Blockers on Current Med List: No Anesthesia Results - Labs 06/29/17 04:02 06/29/17 04:02 - Imaging EKG: report reviewed, image reviewed (SINUS RHYTHM NONSPECIFIC T-WAVE ABNORMALITY) Anesthesia Exam Last Vital Signs Temp 97.7 F 06/29/17 11:00 Pulse 67 06/29/17 11:00 Resp 16 06/29/17 11:00 BP 119/69 06/29/17 11:00 Pulse Ox 97 06/29/17 11:00 Weight: 93 kg - HEENT Pupil (Motor): Pupils equal, EOMI Mallampati: II Teeth: Edentulous Denture Type: Upper: Complete, Lower: Complete Oral Opening: Greater than 3 (symptomatic with minimal neck extension; limited neck ROM) - CLOTH FEEDER LOC: Oriented CLOTH FEEDER Motor: Normal Face, Deficit RUE, Deficit LUE, Deficit RLE, Deficit LLE CLOTH FEEDER Sensory: Normal: Face, Deficit: RUE, LUE, RLE, LLE - Cardiac Rhythm: Regular Murmur: None - Pulmonary Breath Sounds: bilateral Clear Respiratory Effort: Symmetrical Anesthesia Assess/Plan ASA Score: 3 (Severe neurological impairment due to cervical spine issues, HTN, arthritis) Modified Luis Antonio Scale for Level of Consciousness: Cooperative, oriented, and tranquil Anesthetic Plan: General, Precautions (C-MAC or FOI due to neurological symptoms with neck extension; otherwise, good airway features with the exception of neck ROM) Monitoring Plan: Standard Monitors Recovery Plan: PACU
[2017-06-30] MEDS: BuPROPion XL (24 HR) 150 MG TABLET PO SCH (09:07)
[2017-06-30] MEDS: *HR* Enoxaparin 40 MG/0.4 ML SYRINGE SQ SCH (09:08)
[2017-06-30] MEDS: Folic Acid 1 MG TABLET PO SCH (09:08)
[2017-06-30] MEDS: Vitamin B Complex/Vit C/Vit E 1 EACH TABLET PO SCH (09:08)
[2017-06-30] MEDS: Thiamine (B-1) 100 MG TABLET PO SCH (09:08)
[2017-06-30] MEDS: Diclofenac Sodium (24 HR) 100 MG TABLET PO SCH (09:08)
[2017-06-30] MEDS: Fenofibrate 54 MG TABLET PO SCH (09:08)
[2017-06-30] MEDS: (Omega-3/Dha/Epa/Fish Oil [Fish Oil 1,000 Mg Softgel]) PO SCH (09:09)
--- NOTE | 2017-06-30 16:35 | Internal Med Progress Note ---
Date of Encounter: 06/30/17 Time of Encounter: 14:00 - Assessment and plan (1) Stenosis of cervical spine with myelopathy Current Visit: Yes Status: Acute Assessment and plan: Plan for OR on Sunday. Continue to monitor neurologic status at this time. Currently at bedrest. (2) Cervical spinal stenosis Current Visit: Yes Status: Acute Assessment and plan: Plan for spinal surgery on Sunday. He is low risk for the procedure. (3) Lumbar disc disease with radiculopathy Current Visit: Yes Status: Acute Assessment and plan: Continue supportive and conservative care. (4) Inability to walk Current Visit: Yes Status: Acute Assessment and plan: Related to cervical spine disease. (5) Depression Current Visit: Yes Status: Chronic Assessment and plan: Continue home medications and supportive care. Qualifiers: Depression Type: other depression Qualified Code(s): F32.89 - Other specified depressive episodes (6) ETOH abuse Current Visit: Yes Status: Chronic Assessment and plan: No acute issues at this time. No withdrawal symptoms. (7) DVT prophylaxis Current Visit: Yes Status: Acute Assessment and plan: He has not been wearing SCDs. Lovenox started today. Will hold Sunday before surgery. - Subjective Interval history: Mr. Collado is currently admitted for weakness due to cervical cord compression/ stenosis. He is planned for surgery on Sunday. He remains high risk due to potential for worsening neurologic issues. Mr. Collado says he feels OK. No CP or SOB. No worsening of neuro status. No fever or chills. He denies hx of CAD or CVA. No DM or HTN. No CP with exertion. He has no hx of CHF and his creatinine is 1.12. EKG shows no Q waves or acute changes. According to RCRI - rate of nonfatal cardiac arrest and cardiac is 0.4% and rate of [place] is 0.5%. He is therefore considered low and acceptable risk for the procedure. - Constitutional Vitals: Temp Pulse Resp BP Pulse Ox 98.2 F 80 16 142/82 95 06/30/17 15:38 06/30/17 15:38 06/30/17 15:38 06/30/17 15:38 06/30/17 15:38 General appearance: Present: A&O X 3, pleasant, answers questions appropriately - Eye Eye exam: Present: EOMI, conjuntiva pink - ENT ENT exam: Present: mucous membranes dry - Respiratory Respiratory exam: Present: CTAB. Absent: rales, rhonchi, wheezes - Cardiovascular Cardiovascular exam: Present: RRR. Absent: systolic murmur, tachycardia - GI/Abdominal GI/Abdominal exam: Present: soft. Absent: tenderness - Extremities Exam Extremities exam: Present: warm. Absent: tenderness - Neurological Exam Neurological exam: Present: alert, motor sensory deficit. Absent: normal gait, no focal deficits, strengths equal and symetr throughout - Psychiatric Psychiatric exam: Present: normal affect, normal mood - Skin Skin exam: Present: warm. Absent: rash Internal Medicine: Result - Labs CBC & Chem 7: 06/29/17 04:02 06/29/17 04:02 - ABG Interpretation ABG results: PT/INR, D-dimer PT 11.1 Seconds (9.4-12.1) 06/27/17 11:35 - VTE Documentation of Mechanical Device: Intermittent pneumatic compression device Consult Discharge Plan - Plan Referrals: Koffi Bustamante DO [Primary Care Provider] -
[2017-06-30] MEDS: *HR* LORazepam 1 MG TABLET PO PRN (21:53)
[2017-07-01 05:56] LABS: Hematocrit 40.1 % (37.5-50.1); Hemoglobin 12.4 g/dL (12.9-16.9); Mean Corpuscular HGB Conc 30.9 g/dL (31.6-35.5); Mean Corpuscular Hemoglobin 29.9 pg (28.0-33.3); Mean Corpuscular Volume 96.6 fL (83.0-100.0); Mean Platelet Volume 10.4 fL (9.4-12.4); Platelet Count 209 K/mcL (140-400); Red Blood Count 4.15 M/mcL (4.19-5.50); Red Cell Distribution Width 13.5 % (11.5-14.5)
[2017-07-01 06:02] LABS: Prothrombin Time 10.8 Seconds (9.4-12.1)
[2017-07-01 06:05] LABS: Activated Partial Thrombo Time 28.8 Seconds (26.0-36.0)
[2017-07-01 06:12] LABS: Alanine Aminotransferase 23 Units/L (0-55); Albumin 3.4 g/dL (3.5-5.0); Albumin/Globulin Ratio 0.9 (1.1-2.2); Alkaline Phosphatase 66 Units/L (38-126); Aspartate Amino Transferase 22 Units/L (5-34); BUN/Creatinine Ratio 12 (6-26); Bilirubin,Total 0.3 mg/dL (0.2-1.2); Blood Urea Nitrogen 13 mg/dL (8-26); Calcium 9.9 mg/dL (8.6-10.8); Carbon Dioxide 27 mEq/L (19-29); Chloride 108 mEq/L (98-109); Globulin 3.6 g/dL (2.4-3.5); Glucose 110 mg/dL (70-99); Magnesium 1.8 mg/dL (1.6-2.6); Osmolality,Calculated 295 (280-300); Potassium 3.9 mEq/L (3.5-4.5); Sodium 142 mEq/L (136-145); eGFR For African Americans > 60 (> 60); eGFR For Non-African Americans > 60 (> 60)
[2017-07-01] MEDS: *HR* Enoxaparin 40 MG/0.4 ML SYRINGE SQ SCH (06:46)
--- NOTE | 2017-07-01 07:52 | Orthopedics Progress Note ---
Date of Encounter: 07/01/17 Time of Encounter: 07:52 Subjective Interval history: Patient seen this morning scheduled for spine surgery tomorrow no acute changes. Patient is aware nothing to eat or drink after midnight. Objective Vital signs: Vital Signs Temp Pulse Resp BP Pulse Ox 07/01/17 00:00 98.1 F 85 18 145/82 95 06/30/17 19:54 98.3 F 86 19 148/82 94 06/30/17 15:38 98.2 F 80 16 142/82 95 06/30/17 12:11 98.0 F 69 16 129/71 98 Intake and Output 06/30/17 06/30/17 07/01/17 15:59 23:59 07:59 Intake Total 360 / 360 240 / 240 Output Total 575 / 575 300 / 300 Balance -215 / -215 240 / 240 -300 / -300 Intake: Oral 360 / 360 240 / 240 Output: Urine 575 / 575 300 / 300 Other: Meal Lunch Dinner Percent of Meal Consumed 95% 5% Stool Size Large # Bowel Movements 1 - Labs CBC & BMP: 07/01/17 05:17 07/01/17 05:17 Labs: Abnormal lab results RBC 4.15 M/mcL (4.19-5.50) L 07/01/17 05:17 Hgb 12.4 g/dL (12.9-16.9) L 07/01/17 05:17 MCHC 30.9 g/dL (31.6-35.5) L 07/01/17 05:17 Glucose 110 mg/dL (70-99) H 07/01/17 05:17 Creatine Kinase 337 Units/L (30-200) H 06/27/17 11:35 Albumin 3.4 g/dL (3.5-5.0) L 07/01/17 05:17 Globulin 3.6 g/dL (2.4-3.5) H 07/01/17 05:17 Albumin/Globulin Ratio 0.9 (1.1-2.2) L 07/01/17 05:17 - VTE Documentation of Mechanical Device: Intermittent pneumatic compression device Consult Discharge Plan - Plan Referrals: Koffi Bustamante DO [Primary Care Provider] -
[2017-07-01] MEDS: Thiamine (B-1) 100 MG TABLET PO SCH (09:58)
[2017-07-01] MEDS: Diclofenac Sodium (24 HR) 100 MG TABLET PO SCH (09:58)
[2017-07-01] MEDS: BuPROPion XL (24 HR) 150 MG TABLET PO SCH (09:58)
[2017-07-01] MEDS: Vitamin B Complex/Vit C/Vit E 1 EACH TABLET PO SCH (09:58)
[2017-07-01] MEDS: Folic Acid 1 MG TABLET PO SCH (09:59)
[2017-07-01] MEDS: Fenofibrate 54 MG TABLET PO SCH (09:59)
[2017-07-01] MEDS: (Omega-3/Dha/Epa/Fish Oil [Fish Oil 1,000 Mg Softgel]) PO SCH (09:59)
--- NOTE | 2017-07-01 16:44 | Internal Med Progress Note ---
Date of Encounter: 07/01/17 Time of Encounter: 09:00 - Assessment and plan (1) Stenosis of cervical spine with myelopathy Current Visit: Yes Status: Acute Assessment and plan: Plan for OR on Sunday. Continuing to monitor neurologic status. (2) Cervical spinal stenosis Current Visit: Yes Status: Acute Assessment and plan: Plan for spinal surgery on Sunday. He is low risk for the procedure. (3) Lumbar disc disease with radiculopathy Current Visit: Yes Status: Acute Assessment and plan: Continue supportive and conservative care. (4) Inability to walk Current Visit: Yes Status: Acute Assessment and plan: Related to cervical spine disease. (5) Depression Current Visit: Yes Status: Chronic Assessment and plan: Continue home medications and supportive care. Qualifiers: Depression Type: other depression Qualified Code(s): F32.89 - Other specified depressive episodes (6) ETOH abuse Current Visit: Yes Status: Chronic Assessment and plan: Currently in not in withdrawal. Follow. (7) DVT prophylaxis Current Visit: Yes Status: Acute Assessment and plan: He has not been wearing SCDs. Lovenox started. Will hold Sunday before surgery. - Subjective Interval history: Mr. Collado is currently admitted for weakness due to cervical cord compression/ stenosis. He is planned for surgery on Sunday. He remains high risk due to potential for worsening neurologic issues. Mr. Collado had some urinary incontinence this AM. Surgery notified. Pt has no increased pain or weakness. No fever or chills. No loss of bowel. No CP or SOB. According to [facility] - rate of nonfatal cardiac arrest and cardiac is 0.4% and rate of [place] is 0.5%. He is therefore considered low and acceptable risk for the procedure. - Constitutional Vitals: Temp Pulse Resp BP Pulse Ox 98.1 F 85 18 145/82 95 07/01/17 00:00 07/01/17 00:00 07/01/17 00:00 07/01/17 00:00 07/01/17 00:00 General appearance: Present: A&O X 3, pleasant, answers questions appropriately - Head Head exam: Present: normocephalic - Eye Eye exam: Present: EOMI, conjuntiva pink - ENT ENT exam: Present: mucous membranes moist - Respiratory Respiratory exam: Present: CTAB. Absent: rales, rhonchi, wheezes - Cardiovascular Cardiovascular exam: Present: RRR. Absent: tachycardia - GI/Abdominal GI/Abdominal exam: Present: soft. Absent: tenderness - Extremities Exam Extremities exam: Present: warm. Absent: tenderness - Neurological Exam Neurological exam: Present: alert, oriented X3 (No numbness to perineal area.) - Skin Skin exam: Present: dry, warm. Absent: rash Internal Medicine: Result - Labs CBC & Chem 7: 07/01/17 05:17 07/01/17 05:17 Labs: Short CBC 07/01/17 Range/Units 05:17 WBC 6.9 (4.3-11.1) K/mcL Hgb 12.4 L (12.9-16.9) g/dL Hct 40.1 (37.5-50.1) % Plt Count 209 (140-400) K/mcL BMP 07/01/17 05:17 Sodium 142 Potassium 3.9 Chloride 108 Carbon Dioxide 27 BUN 13 Creatinine 1.09 Glucose 110 H Calcium 9.9 Liver Function 07/01/17 Range/Units 05:17 Total Bilirubin 0.3 (0.2-1.2) mg/dL AST 22 (5-34) Units/L ALT 23 (0-55) Units/L Alkaline Phosphatase 66 (38-126) Units/L Albumin 3.4 L (3.5-5.0) g/dL - ABG Interpretation ABG results: PT/INR, D-dimer PT 10.8 Seconds (9.4-12.1) 07/01/17 05:17 - VTE Documentation of Mechanical Device: Graduated compression elastic hosiery Consult Discharge Plan - Plan Referrals: Koffi Bustamante DO [Primary Care Provider] -
[2017-07-01] MEDS: *HR* LORazepam 1 MG TABLET PO PRN (20:32)
[2017-07-02] MEDS: Fenofibrate 54 MG TABLET PO SCH (07:21)
[2017-07-02] MEDS: Diclofenac Sodium (24 HR) 100 MG TABLET PO SCH (07:21)
[2017-07-02] MEDS: (Omega-3/Dha/Epa/Fish Oil [Fish Oil 1,000 Mg Softgel]) PO SCH (07:21)
[2017-07-02] MEDS: Vitamin B Complex/Vit C/Vit E 1 EACH TABLET PO SCH (07:21)
[2017-07-02] MEDS: BuPROPion XL (24 HR) 150 MG TABLET PO SCH (07:21)
[2017-07-02] MEDS: Folic Acid 1 MG TABLET PO SCH (07:21)
[2017-07-02] MEDS: Thiamine (B-1) 100 MG TABLET PO SCH (07:21)
--- NOTE | 2017-07-02 09:11 | Internal Med Progress Note ---
<Jimbo Johnson - Last Filed: 07/02/17 18:00> Date of Encounter: 07/02/17 Time of Encounter: 09:10 - Assessment and plan (1) Stenosis of cervical spine with myelopathy Current Visit: Yes Status: Acute Assessment and plan: Presented to the ED on 06/27/17 with complaint of numbness and tingling of both hands that has progressed over the past couple weeks to decreased gate watch strength. Previously had similar symptoms and had undergone surgery about 10 years ago and lastly 03/2017 of c-spine for cervical stenosis with symptoms. C-spine MRI revealed severe spinal canal stenosis at C4-5 and persistent abnormal cord abnormality at that level. Also unchanged borderline cord compression at C3-4. Improvement of symptoms since admission, still having decreased gate watch strength. -Orthopedic Surgery on board, to undergo surgery later today. (2) Lumbar disc disease with radiculopathy Current Visit: Yes Status: Acute Assessment and plan: Presented on 06/27/17 to ED with complaint of inability to walk and lower extremity weakness for a couple weeks. Reports that he fell and was unable to get up off the ground for about 7 hours. MRI Lumbar spine revealed large disc extrusion at postoperative level of L4-5 resulting in severe spinal canal stenosis and severe bilateral L4 foraminal narrowing. Improvement in symptoms overnight, no fecal incontinence or saddle anesthesia. Exam essentially normal, but did not attempt to walk patient. -Orthopedic Surgery on board, plan for surgery later today. (3) Inability to walk Current Visit: Yes Status: Acute Assessment and plan: Per plan in assessments above. (4) Depression Current Visit: Yes Status: Chronic Assessment and plan: Known history of depression and alcohol abuse. Continue home medications for chronic disease management. Qualifiers: Depression Type: other depression Qualified Code(s): F32.89 - Other specified depressive episodes (5) ETOH abuse Current Visit: Yes Status: Chronic Assessment and plan: Known history of alcohol abuse, no current withdrawal symptoms. Continue to monitor overnight, if needed, implement CIWA protocol. (6) DVT prophylaxis Current Visit: Yes Status: Acute Assessment and plan: Continue with lovenox for dvt ppx. - Subjective Interval history: Patient reports doing okay this morning, reports improved motion of lower extremities and upper extremities, still having some decreased gate watch strength bilaterally. Patient denies fecal incontinence, saddle anesthesia or numbness, or new loss of sensation. Patient denies fevers, chills, sweats, nausea, vomiting, chest pain, shortness of breath, abdominal pain, diarrhea, constipation, or dysuria. - Constitutional Vitals: Temp Pulse Resp BP Pulse Ox 97.7 F 66 15 140/86 96 07/02/17 08:42 07/02/17 08:42 07/02/17 08:42 07/02/17 08:42 07/02/17 08:42 General appearance: Present: A&O X 3, pleasant, no acute distress, answers questions appropriately - Head Head exam: Present: atraumatic, normal inspection, normocephalic - Eye Eye exam: Present: EOMI, normal appearance, PERRL - ENT ENT exam: Present: mucous membranes moist, normal exam, normal oropharynx - Neck Neck exam general surgery: Present: supple, trachea midline. Absent: tenderness Additional comments: decreased ROM - Respiratory Respiratory exam: Present: CTAB. Absent: rales, respiratory distress, rhonchi, wheezes, tachypnea - Cardiovascular Cardiovascular exam: Present: RRR, +S1, +S2. Absent: diastolic murmur, JVD, systolic murmur - GI/Abdominal GI/Abdominal exam: Present: normal bowel sounds, soft. Absent: distended, guarding, tenderness - Extremities Exam Extremities exam: Present: normal inspection, warm, radial pulses palpable and symmetrical. Absent: pedal edema, tenderness Additional comments: 4/5 strength bilateral lower extremities, sensation essentially normal bilaterally, moves toes when prompted, patellar dtr 2/4 bilaterally. Upper extremities essnetially normal ROM, mild decreased sensation over medial aspects of forearms, 5/5 strenght upper extremities, gate watch strenght decreased bilaterally, normal sensation of hands.. - Neurological Exam Neurological exam: Present: alert, oriented X3, no focal deficits, strengths equal and symetr throughout. Absent: facial droop, speech deficit - Psychiatric Psychiatric exam: Present: normal affect, normal mood - Skin Skin exam: Present: dry, intact, normal color, warm. Absent: rash Internal Medicine: Result - Labs CBC & Chem 7: 07/01/17 05:17 07/01/17 05:17 - ABG Interpretation ABG results: PT/INR, D-dimer PT 10.8 Seconds (9.4-12.1) 07/01/17 05:17 - VTE Documentation of Mechanical Device: Intermittent pneumatic compression device Consult Discharge Plan - Plan Referrals: Koffi Bustamante DO [Primary Care Provider] - <Gian Jimenez - Last Filed: 07/02/17 19:02> Date of Encounter: 07/02/17 - Assessment and plan (1) Cervical spinal stenosis Current Visit: Yes Status: Acute (2) Stenosis of cervical spine with myelopathy Current Visit: Yes Status: Acute (3) Lumbar disc disease with radiculopathy Current Visit: Yes Status: Acute (4) Inability to walk Current Visit: Yes Status: Acute (5) Depression Current Visit: Yes Status: Chronic Qualifiers: Depression Type: other depression Qualified Code(s): F32.89 - Other specified depressive episodes (6) ETOH abuse Current Visit: Yes Status: Chronic (7) DVT prophylaxis Current Visit: Yes Status: Acute - Constitutional Vitals: Temp Pulse Resp BP Pulse Ox 97.9 F 96 16 136/71 100 07/02/17 18:27 07/02/17 18:27 07/02/17 18:27 07/02/17 18:27 07/02/17 18:27 Internal Medicine: Result - Labs CBC & Chem 7: 07/01/17 05:17 07/01/17 05:17 - ABG Interpretation ABG results: PT/INR, D-dimer PT 10.8 Seconds (9.4-12.1) 07/01/17 05:17 - Impressions Impressions Cervical Spine X-Ray 07/02/17 14:55 IMPRESSION: Anterior needle marker at C5 or C4-5, as noted above. D/ / Daniel Campbell MD / Daniel Campbell MD Interpreting Provider: Daniel Campbell MD Cervical Spine X-Ray 07/02/17 16:15 IMPRESSION: New anterior fusion at C4-C5. D/ / 07/02/2017 16:36:14 Efren Bernal MD / caterina Interpreting Provider: Efren Bernal MD - Attending Attestation I examined this patient and my medical decision-making was reviewed with the Resident Physician on 07/02/17. I agree with the documented findings, disposition and treatment plan as described except to the extent set forth below. Mr Collado is currently admitted with cervical spine disease with myelopathy. He is to go to OR today for removal of hardware and fusion. He remains moderate to high risk due to potential for worsening neurologic status. Mr Collado is going to OR. He has no new issues at this time. No fever or chills. No CP or SOB. Exam Alert. Comfortable Heart reg No wheeze Abd soft Mucus membranes dry I/P 1. Cervical spine disease 2. myelopathy Further diagnoses and plan as above.
[2017-07-02] MEDS ORDERED: *HR* FentaNYL (PF) 100 MCG/2 ML VIAL ONE (12:25)
[2017-07-02] MEDS ORDERED: *HR* Midazolam HCl 2 MG/2 ML VIAL ONE (12:25)
[2017-07-02] MEDS ORDERED: *HR* Propofol 200 MG/20 ML VIAL IVP ONE (12:26)
[2017-07-02] MEDS ORDERED: Lidocaine -MPF 2% 2 ML VIAL ONE (12:26)
[2017-07-02] MEDS ORDERED: *HR* Remifentanil 1 MG VIAL IVP ONE (12:52)
[2017-07-02] MEDS ORDERED: *HR* Rocuronium Bromide 50 MG/5 ML VIAL ONE (12:58)
[2017-07-02] MEDS ORDERED: Bacitracin/PolymyxinB OINT 14.17 GM TUBE TP ONE (13:15)
[2017-07-02] MEDS ORDERED: Lacri-Lube 3.5 GM TUBE ONE (13:34)
[2017-07-02] MEDS ORDERED: EPHEDrine 50 MG/ML VIAL ONE (13:54)
[2017-07-02] MEDS ORDERED: ceFAZolin 2,000 MG in D5% in Water (Mini-Bag+) 100 ML IVPB ONE (14:07)
[2017-07-02] MEDS ORDERED: CeFAZolin Pre 2,000 MG/100 ML 2,000 MG/100 ML BAG IVPB ONE (15:15)
[2017-07-02] MEDS ORDERED: Ondansetron 4 MG/2 ML VIAL ONE (15:31)
[2017-07-02] MEDS ORDERED: Dexamethasone 4 MG/ML VIAL ONE (15:31)
[2017-07-02] MEDS ORDERED: *HR* HYDROmorphone 2 MG/ML SYRINGE ONE (16:10)
--- NOTE | 2017-07-02 16:19 | Orthopedic Operative Note ---
Date of procedure: 07/02/17 Pre-op diagnosis: Cervical stenosis, cervical myelopathy, s/p cervical fusion Post-op diagnosis: same Operation/Findings: Exploration of fusion, removal of hardware, anterior cervical decompression and fusion C4-5: The patient was brought to the operating room and placed supine on the operating room table. Successful general endotracheal anesthesia intubation was performed. Neurophysiologic monitoring personnel placed leads on the upper and lower extremities as well as the cranium for EMG monitoring purposes. Appropriate baseline potentials were noted by the neurophysiologic monitoring staff. Olmos catheter was placed prior to positioning. Compression boots and stockings were placed for deep vein thrombosis prophylaxis. Padding was also placed all bony prominences including the ulnar nerve near the medial epicondyles of the elbows were appropriately padded. Mild traction was placed on the bilateral shoulders and taped into place. Preoperative antibiotics were administered. The area from the mandible bilaterally to the upper thoraces was prepped and draped in the usual sterile fashion. A transverse incision was made at the level of the cricoid cartilage which is approximately 3 cm in length and extended from the midline of the cervical spine laterally towards the sternocleidomastoid muscle on the left. We then performed standard medial approach to the carotid sheath. Sponges were used to tease the fascial medial to the sternocleidomastoid muscle while carefully controlling and palpating the carotid artery. Using careful dissection we were able to get to the level of the anterior vertebral bodies and longus coli muscles. We noted hardware from C5-C7 and when palpated there appeared to be a solid arthrodesis here. There was a stand-alone device at C4-5 which did not have solid bridging bone between the vertebral bodies. We removed this interbody spacer device using universal removal of hardware instrumentation. Of note, after this exploration of fusion and removal of the hardware, there was significant amount of disc material still present at C4-5. The spinal needle was placed at the appropriate C4-5 level, and intraoperative radiograph was obtained which was a cervical spine lateral radiograph. The needle and radiograph confirmed we were at the correct C4-5 operative level. We further exposed this level by using Bovie cautery under the medial edge of the longus coli muscles to allow them to be retracted approximately 2 mm laterally on each side. An 11 blade was used to perform anterior discectomy at the appropriate C4-5 level after an initial annulotomy of the anterior longitudinal ligament and annulus was performed. Further disc material was removed with pituitary Rongeurs. Subsequently, Synthes pins were placed at the C4 and C5 vertebral bodies respectively to provide distraction. We then used a Trimline cervical retractor which was placed in both medial and lateral as well as inferior superior direction to allow full visualization of the appropriate C4-5 disc and C4 and C5 vertebral bodies. The Leica microscope was brought to the field and the remainder of the procedure was performed under the guidance of this microscope. Using pituitary rongeurs and small curettes, various micro-instruments, a full discectomy was performed at the appropriate C4-5 level. The posterior longitudinal ligament was encountered and appeared partially calcified. A portion of this ligament was removed. After complete and thorough discectomy and removal of spondylitic material was performed the endplates of the C4 and C5 vertebral bodies were prepared with a bur until allow bleeding of cancellous bone. A 7 mm trial graft was evaluated and appeared to fit quite well within the excised disc space. A cortico-cancellus allograft of 7 mm was utilized, carefully tapped into place within the excised disc space with the aid of a bone tamp. It was seated approximately 2 mm from the anterior edge of the cortex of the adjacent vertebral bodies. A cervical plate was then placed on the anterior aspect of the C4 and C5 vertebral bodies. The plate was placed in the midline position after drilling for 13 mm self tapping screws and inserting them. They were locked in place using standard Venture plate maneuvers. At this point a lateral radiograph of the cervical spine was obtained and showed satisfactory position of the graft and plate. The wound was copiously irrigated and bleeders encountered were cauterized using Bovie cautery. Platysma was closed with interrupted 2-0 Vicryl sutures. Running 3-0 Monocryl suture was used for skin closure. Sterile dressing was placed over the neck wound. The patient was transferred to a hospital bed and extubated. The patient was noted to be fully motor and sensory intact in the recovery room at the end of the procedure. The medications. All sponge instrument and needle counts were correct at the end of the procedure. Anesthesia: GETA Surgeon: Antonio Eddy Jr Estimated blood loss (cc): 40 Condition: stable Disposition: PACU
[2017-07-02] MEDS ORDERED: *HR* Promethazine 25 MG/ML VIAL IVP PRN (16:36)
[2017-07-02] MEDS ORDERED: *HR* HYDROmorphone (PF) 1 MG/ML SYRINGE IVP PRN (16:36)
--- NOTE | 2017-07-02 17:06 | Anesthesia Evaluation Post Op ---
Date of Encounter: 07/02/17 Time of Encounter: 17:05 - Vital Signs Vital Signs: Vital Signs/O2 Sat, Most Current Temp Pulse Resp BP Pulse Ox 98.5 F 89 12 134/84 98 07/02/17 17:00 07/02/17 17:00 07/02/17 17:00 07/02/17 17:00 07/02/17 17:00 - Lungs Lungs: Clear Ascult./Percussion - Airway Airway: Non-obstructed - Cardiovascular Regular Rate - Mental Status Mental Status: Alert & Oriented, Answers Appropriately - Pain Pain Scale: 0 Pain Scale used: Numeric (1 - 10) - Nausea Vomiting Nausea Vomiting: Not Present - Hydration Hydration: Ice chips, Olmos catheter - Discharge PostOp Status: Transfer Patient to floor
[2017-07-02] MEDS ORDERED: Ondansetron 4 MG/2 ML VIAL IVP PRN (17:15)
[2017-07-02] MEDS ORDERED: *HR* LORazepam 1 MG TABLET PO PRN (17:15)
[2017-07-02] MEDS ORDERED: Naloxone 0.4 MG/ML INJ IVP PRN (17:15)
[2017-07-02] MEDS ORDERED: *HR* Morphine 2 MG/ML SYRINGE IVP PRN (17:15)
[2017-07-02] MEDS ORDERED: Ringers Solution, Lactated 1,000 ML IVC SCH (17:15)
[2017-07-02] MEDS: *HR* OxyCODONE Immed Rel 5 MG TABLET PO PRN (18:31)
[2017-07-02] MEDS: ceFAZolin 2,000 MG in D5% in Water 100 ML IVPB SCH (23:01)
[2017-07-03] MEDS: *HR* OxyCODONE Immed Rel 5 MG TABLET PO PRN ×2 (04:39→12:50)
[2017-07-03 08:07] LABS: BUN/Creatinine Ratio 14 (6-26); Blood Urea Nitrogen 16 mg/dL (8-26); Carbon Dioxide 25 mEq/L (19-29); Chloride 104 mEq/L (98-109); Glucose 115 mg/dL (70-99); Osmolality,Calculated 294 (280-300); Potassium 4.1 mEq/L (3.5-4.5); Sodium 141 mEq/L (136-145); eGFR For African Americans > 60 (> 60); eGFR For Non-African Americans > 60 (> 60)
[2017-07-03 08:11] LABS: Basophils % 0.3 %; Eosinophils % 0.2 %; Hematocrit 39.9 % (37.5-50.1); Hemoglobin 12.9 g/dL (12.9-16.9); Immature Granulocytes % 0.3 % (0-4); Lymphocytes % 19.5 %; Mean Corpuscular HGB Conc 32.3 g/dL (31.6-35.5); Mean Corpuscular Hemoglobin 30.4 pg (28.0-33.3); Mean Corpuscular Volume 93.9 fL (83.0-100.0); Mean Platelet Volume 10.4 fL (9.4-12.4); Monocytes # 0.6 K/mcL (0.0-1.3); Neutrophils # 7.7 K/mcL (1.6-8.9); Platelet Count 232 K/mcL (140-400); Red Blood Count 4.25 M/mcL (4.19-5.50); Red Cell Distribution Width 13.4 % (11.5-14.5); Segmented Neutrophils % 73.7 %
[2017-07-03 08:12] LABS: Lymphocytes # 2.1 K/mcL (0.6-4.6)
[2017-07-03] MEDS: Fenofibrate 54 MG TABLET PO SCH (08:50)
[2017-07-03] MEDS: Thiamine (B-1) 100 MG TABLET PO SCH (08:50)
[2017-07-03] MEDS: Folic Acid 1 MG TABLET PO SCH (08:50)
[2017-07-03] MEDS: Vitamin B Complex/Vit C/Vit E 1 EACH TABLET PO SCH (08:51)
[2017-07-03] MEDS: ceFAZolin 2,000 MG in D5% in Water 100 ML IVPB SCH (08:51)
[2017-07-03] MEDS: Diclofenac Sodium (24 HR) 100 MG TABLET PO SCH (08:51)
--- NOTE | 2017-07-03 10:13 | Internal Med Progress Note ---
<Jimbo Johnson - Last Filed: 07/03/17 10:54> Date of Encounter: 07/03/17 Time of Encounter: 10:13 - Assessment and plan (1) Stenosis of cervical spine with myelopathy Current Visit: Yes Status: Acute Assessment and plan: Presented to the ED on 06/27/17 with complaint of numbness and tingling of both hands that has progressed over the past couple weeks to decreased whipped topping mixer strength. Previously had similar symptoms and had undergone surgery about 10 years ago and lastly 03/2017 of c-spine for cervical stenosis with symptoms. C-spine MRI revealed severe spinal canal stenosis at C4-5 and persistent abnormal cord abnormality at that level. Also unchanged borderline cord compression at C3-4. POD #1 exploration of fusion, removal of harsware, anterior cervical decompression and fusion of C4-[address] Eddy. Marked improvement in lower extremity strength and notable improvement of whipped topping mixer strength and sensory return. -Continue to monitor -Orthopedic Surgery on board. (2) Lumbar disc disease with radiculopathy Current Visit: Yes Status: Acute Assessment and plan: Presented on 06/27/17 to ED with complaint of inability to walk and lower extremity weakness for a couple weeks. Reports that he fell and was unable to get up off the ground for about 7 hours. MRI Lumbar spine revealed large disc extrusion at postoperative level of L4-5 resulting in severe spinal canal stenosis and severe bilateral L4 foraminal narrowing. Improvement in symptoms post op. Patient is participating with PT/OT and standing. -Orthopedic Surgery on board -Continue monitoring exam status.. (3) Inability to walk Current Visit: Yes Status: Acute Assessment and plan: Per plan in assessments above. (4) Depression Current Visit: Yes Status: Chronic Assessment and plan: Known history of depression and alcohol abuse. Continue home medications for chronic disease management. Qualifiers: Depression Type: other depression Qualified Code(s): F32.89 - Other specified depressive episodes (5) ETOH abuse Current Visit: Yes Status: Chronic Assessment and plan: Known history of alcohol abuse, no current withdrawal symptoms. Continue to monitor overnight, if needed, implement CIWA protocol. (6) DVT prophylaxis Current Visit: Yes Status: Acute Assessment and plan: Last dose lovenox yesterday. Continue to encourage ambulation. Continue with IPCDs - Subjective Interval history: Patient reports doing well and improving this morning. He reports his upper extremity motion is improved, whipped topping mixer strength is improved, and lower extremity strength is significantly better and is participating with PT/OT in the room standing. Patient denies fecal incontinence, saddle anesthesi or numbness, new loss of sensation. Denies fevers, chills, sweats, nausea, vomiting, chest pain , shortness of breath, abdominal pain, diarrhea, constipation, dysuria. Patient reports pain is controlled at 4/10. - Constitutional Vitals: Temp Pulse Resp BP Pulse Ox 97.9 F 69 14 154/82 99 07/03/17 07:41 07/03/17 07:41 07/03/17 07:41 07/03/17 07:41 07/03/17 07:41 General appearance: Present: A&O X 3, pleasant, no acute distress, answers questions appropriately - Head Head exam: Present: atraumatic, normal inspection, normocephalic - Eye Eye exam: Present: EOMI, normal appearance - ENT ENT exam: Present: mucous membranes moist, normal exam, normal oropharynx - Neck Neck exam general surgery: Present: normal inspection, tenderness, trachea midline Additional comments: In C-Collar, ROM unable to elicit due to. - Respiratory Respiratory exam: Present: CTAB. Absent: rales, rhonchi, wheezes - Cardiovascular Cardiovascular exam: Present: RRR, +S1, +S2. Absent: diastolic murmur, JVD, systolic murmur - GI/Abdominal GI/Abdominal exam: Present: normal bowel sounds, soft. Absent: distended, guarding, tenderness - Extremities Exam Extremities exam: Present: normal capillary refill, normal inspection, warm, radial pulses palpable and symmetrical. Absent: pedal edema, tenderness Additional comments: 4/5 strength bilateral lower extremities improving, sensation normal bilaterally , moves toes when prompted, patellar dtr 2/4 bilaterally. Upper extremities essentially normal ROM, normal sensation bilaterally, 5/5 strength upper extremities, whipped topping mixer strength decreased bilaterally improving and able to make closed fist, normal sensation of hands. - Neurological Exam Neurological exam: Present: alert, oriented X3, strengths equal and symetr throughout. Absent: facial droop, speech deficit - Psychiatric Psychiatric exam: Present: normal affect, normal mood - Skin Skin exam: Present: dry, intact, normal color, warm. Absent: rash Internal Medicine: Result - Labs CBC & Chem 7: 07/03/17 06:34 07/03/17 06:34 Labs: Short CBC 07/03/17 Range/Units 06:34 WBC 10.5 D (4.3-11.1) K/mcL Hgb 12.9 (12.9-16.9) g/dL Hct 39.9 (37.5-50.1) % Plt Count 232 (140-400) K/mcL Neutrophils # 7.7 (1.6-8.9) K/mcL BMP 07/03/17 06:34 Sodium 141 Potassium 4.1 Chloride 104 Carbon Dioxide 25 BUN 16 Creatinine 1.15 Glucose 115 H Calcium 10.0 - ABG Interpretation ABG results: PT/INR, D-dimer PT 10.8 Seconds (9.4-12.1) 07/01/17 05:17 - Impressions Impressions Cervical Spine X-Ray 07/02/17 14:55 IMPRESSION: Anterior needle marker at C5 or C4-5, as noted above. D/ / Daniel Campbell MD / Daniel Campbell MD Interpreting Provider: Daniel Campbell MD Cervical Spine X-Ray 07/02/17 16:15 IMPRESSION: New anterior fusion at C4-C5. D/ / 07/02/2017 16:36:14 Efren Bernal MD / caterina Interpreting Provider: Efren Bernal MD - VTE Documentation of Mechanical Device: Venous foot pump, device Consult Discharge Plan - Plan Additional Instructions: Discharge Instructions: Cervical Please call [facility] ([phone]), your Primary Care Physician, or report to the ER if you have any of the following symptoms: Fever greater that 101.5, increased pain/redness/drainage/odor for your incision site or any other concerning symptoms. ACTIVITY * May Shower * No Tub Baths * No Smoking * No Swimming * No Driving * Wear Collar when up walking MEDICATIONS: Upon discharge resume your home medications. Take all the medications as prescribed. Take a stool softener if taking narcotic pain medications. Stool softeners are only effective if you drink enough fluids. Drink 6-8 glass of water or fluids a day, unless this is not allowed for another health problem. Despite using stool softeners, if you haven't had a bowel movement in 3 days, please switch to a gentle laxative. Gentle laxatives are sold over the counter. You should have a bowel movement within 24 hours, if not call the office. You will be discharged from the hospital with a prescription for pain medication. You are encouraged to decrease the use of narcotic pain medication as tolerated. Should you require a refill, please call the office. It is best to call 48-72 hours in advance of needing a prescription refill so you don't run out of medication. WOUND CARE: Leave steri-strips in place until they fall off on their own. Pat dry when you get out of the shower. FOLLOW-UP: Please follow up with your surgeon in the orthopedic clinic in 2 weeks from the day of surgery. References: [employer] (www.[email or web address]) Referrals: Daly Leyva, PAC [Physician Assistant Tennis Coach] - 07/17/17 10:15 am <Jacky Dumont - Last Filed: 07/03/17 19:16> Date of Encounter: 07/03/17 - Constitutional Vitals: Temp Pulse Resp BP Pulse Ox 99.2 F 77 15 109/72 98 07/03/17 12:35 07/03/17 12:35 07/03/17 12:35 07/03/17 12:35 07/03/17 12:35 Internal Medicine: Result - Labs CBC & Chem 7: 07/03/17 06:34 07/03/17 06:34 Labs: Short CBC 07/03/17 Range/Units 06:34 WBC 10.5 D (4.3-11.1) K/mcL Hgb 12.9 (12.9-16.9) g/dL Hct 39.9 (37.5-50.1) % Plt Count 232 (140-400) K/mcL Neutrophils # 7.7 (1.6-8.9) K/mcL BMP 07/03/17 06:34 Sodium 141 Potassium 4.1 Chloride 104 Carbon Dioxide 25 BUN 16 Creatinine 1.15 Glucose 115 H Calcium 10.0 - ABG Interpretation ABG results: PT/INR, D-dimer PT 10.8 Seconds (9.4-12.1) 07/01/17 05:17 - Impressions Impressions Cervical Spine X-Ray 07/03/17 08:30 IMPRESSION: Stable cervical alignment status post revision anterior fusion at C4-5. Mild diffuse soft tissue swelling. D/ / Mitesh Yee MD / Mitesh Yee MD Interpreting Provider: Mietsh Yee MD - Attending Attestation I examined this patient and my medical decision-making was reviewed with the Resident Physician. I agree with the documented findings, disposition and treatment plan as described except to the extent set forth below. Patient's bilateral upper and lower extremity weakness have improved over the last 24 hours. He is postoperative day 1 status post hardware removal and laminectomy. On exam he is awake alert oriented. Heart is regular with normal S1-S2, no murmurs. Plan: Continue PT OT. Fall precautions. Pain control. Discharge planning.
--- NOTE | 2017-07-03 11:05 | Spine Progress Note ---
Date of Encounter: 07/03/17 Time of Encounter: 11:03 - Assessment and Plan (1) Cervical myelopathy Current Visit: Yes Status: Chronic On examination he is lying comfortably in bed in no acute distress. Afebrile vital signs stable. He has a positive Cortney sign. He has positive Babinski. He has hand spasticity. He has decreased sensation in the distal upper extremities. He has a positive inverted radial reflex. His hips move symmetrically. AP and lateral views of the cervical spine reveal multilevel degenerative changes. There is an anterior cervical plate and fusion from C5-C7. There is a stand-alone interbody device at C4-5. MRI of the cervical spine reveals postsurgical changes anteriorly C4-C7. There are multilevel degenerative changes. There is severe stenosis with resultant spinal cord compression at C4-5. Impression: 1) Severe cervical stenosis with cord compression C4-5 2) cervical myelopathy 3) history of cervical fusion 2 with hardware at C4-5 and C5-C7 anteriorly. Plan: Due to his neurologic decline and likelihood for permanent or progressive neurologic injury find it reasonable to consider surgery in the form of an anterior cervical decompression and fusion C4-5 with removal of hardware and exploration of fusion. He may also require a posterior cervical fusion C4-C7 if there are any issues with instrumentation and decompression anteriorly. Risks benefits possible consultations and alternatives were discussed and the patient would like to proceed. He will require medical optimization and clearance measures prior to surgical intervention which we will plan for Sunday. He requires special hardware instrumentation removal devices to be transported which preclude immediate intervention. Subjective Principal diagnosis: Cervical stenosis, cervical myelopathy Interval history: The patient is without complaints. Improvement from presurgical state. No bowel bladder symptoms, leg strength is markedly improved, able to move hands now fully. Afebrile vital signs are stable. Incision is clean dry and intact. Neurovascularly intact with regard to bilateral upper and lower extremities. Assessment :stable. Plan mobilize ,continue analgesics, discharge planning. Follow-up in my office in 2 weeks. Okay to discharge from my standpoint. Objective Vital signs: Vital Signs Temp Pulse Resp BP Pulse Ox 07/03/17 07:41 97.9 F 69 14 154/82 99 07/03/17 05:11 97.7 F 78 16 119/60 97 07/02/17 23:36 98.1 F 93 16 113/65 97 07/02/17 20:39 98.0 F 93 16 128/78 98 07/02/17 19:37 98.1 F 95 16 124/72 100 07/02/17 18:27 97.9 F 96 16 136/71 100 07/02/17 17:20 97.7 F 87 16 146/84 100 07/02/17 17:00 98.5 F 89 12 134/84 98 07/02/17 16:50 93 16 136/76 98 07/02/17 16:40 90 16 134/88 97 07/02/17 16:30 98 F 90 16 148/81 100 07/02/17 11:37 98.2 F 74 18 124/79 100 Intake and Output 07/02/17 07/03/17 07/03/17 23:59 07:59 15:59 Intake Total 50 / 50 100 / 100 454 / 454 Output Total 640 / 640 1250 / 1250 Balance -590 / -590 -1150 / -1150 454 / 454 Intake: IV Fluids 100 / 100 Ancef 2,000 MG In 100 / 100 Dextrose 5% 100 ML @ 200 mls/hr IVPB Q8HR [facility] Rx#: [id number] Oral 50 / 50 454 / 454 Output: Estimated Blood Loss 40 / 40 Catheter 600 / 600 1250 / 1250 Other: Meal Breakfast Percent of Meal Consumed 100% Weight 94.08 kg Patient Weight 07/03/17 23:59 Weight 94.08 kg - Labs CBC & BMP: 07/03/17 06:34 07/03/17 06:34 Labs: Abnormal lab results Glucose 115 mg/dL (70-99) H 07/03/17 06:34 Creatine Kinase 337 Units/L (30-200) H 06/27/17 11:35 Albumin 3.4 g/dL (3.5-5.0) L 07/01/17 05:17 Globulin 3.6 g/dL (2.4-3.5) H 07/01/17 05:17 Albumin/Globulin Ratio 0.9 (1.1-2.2) L 07/01/17 05:17 Consult Discharge Plan - Plan Referrals: ColKoffi torres DO [Primary Care Provider] -
[2017-07-04 06:56] VITALS: BP 121/67
--- NOTE | 2017-07-04 07:34 | Internal Med Progress Note ---
<Jimbo Johnson - Last Filed: 07/04/17 08:41> Date of Encounter: 07/04/17 Time of Encounter: 07:34 - Assessment and plan (1) Stenosis of cervical spine with myelopathy Current Visit: Yes Status: Acute Assessment and plan: Presented to the ED on 06/27/17 with complaint of numbness and tingling of both hands that has progressed over the past couple weeks to decreased public transportation inspector strength. Previously had similar symptoms and had undergone surgery about 10 years ago and lastly 03/2017 of c-spine for cervical stenosis with symptoms. C-spine MRI revealed severe spinal canal stenosis at C4-5 and persistent abnormal cord abnormality at that level. Also unchanged borderline cord compression at C3-4. POD #2 exploration of fusion, removal of hardware, anterior cervical decompression and fusion of C4-[address] Eddy. Continued improvement of lower extremities, but again noting some sensory loss of right upper extremity and public transportation inspector strength on right appears slightly diminished compared to yesterday. -Continue to monitor -Orthopedic Surgery on board. (2) Lumbar disc disease with radiculopathy Current Visit: Yes Status: Acute Assessment and plan: Presented on 06/27/17 to ED with complaint of inability to walk and lower extremity weakness for a couple weeks. Reports that he fell and was unable to get up off the ground for about 7 hours. MRI Lumbar spine revealed large disc extrusion at postoperative level of L4-5 resulting in severe spinal canal stenosis and severe bilateral L4 foraminal narrowing. Improvement in symptoms post op. Patient is participating with PT/OT and standing. -Orthopedic Surgery on board -Continue monitoring exam status. -Plan to send home with PT/OT (3) Inability to walk Current Visit: Yes Status: Acute Assessment and plan: Per plan in assessments above. (4) Depression Current Visit: Yes Status: Chronic Assessment and plan: Known history of depression and alcohol abuse. Continue home medications for chronic disease management. Qualifiers: Depression Type: other depression Qualified Code(s): F32.89 - Other specified depressive episodes (5) ETOH abuse Current Visit: Yes Status: Chronic Assessment and plan: Known history of alcohol abuse, no current withdrawal symptoms. Continue to monitor overnight, if needed, implement CIWA protocol. (6) DVT prophylaxis Current Visit: Yes Status: Acute Assessment and plan: Last dose lovenox yesterday. Continue to encourage ambulation. Continue with IPCDs - Subjective Interval history: Patient reports doing well overnight and reports that he was told he will likely be discharged later today. He reports some tingling and numbness of right arm and hand this morning and it appears public transportation inspector strength is about the same or slightly decrased from yesterday. Currently lower extremity strength continuing to improve per patient. Denies fevers, chills, sweats, nausea, vomiting, chest pain, shortness of breath, abdominal pain, changes in bowels, diarrhea, constipation, dysuria, bladder or bowel incontinence, falls, new weakness. - Constitutional Vitals: Temp Pulse Resp BP Pulse Ox 97.6 F 81 16 121/67 97 07/04/17 06:56 07/04/17 06:56 07/04/17 06:56 07/04/17 06:56 07/04/17 06:56 General appearance: Present: cooperative, A&O X 3, pleasant, no acute distress, answers questions appropriately - Head Head exam: Present: atraumatic, normal inspection, normocephalic - Eye Eye exam: Present: EOMI, normal appearance - ENT ENT exam: Present: mucous membranes moist, normal exam, normal oropharynx - Neck Neck exam general surgery: Present: supple, trachea midline. Absent: tenderness Additional comments: incision site clean dry intact anterior right neck, no surrounding erythema or significant tenderness, mild decreased ROM at this time. - Respiratory Respiratory exam: Present: CTAB. Absent: rales, rhonchi, wheezes - Cardiovascular Cardiovascular exam: Present: RRR, +S1, +S2. Absent: diastolic murmur, JVD, systolic murmur - GI/Abdominal GI/Abdominal exam: Present: normal bowel sounds, soft. Absent: distended, guarding, tenderness - Extremities Exam Extremities exam: Present: normal capillary refill, normal inspection, warm, radial pulses palpable and symmetrical. Absent: pedal edema, tenderness Additional comments: 4/5 strength bilateral lower extremities improving, sensation normal bilaterally lower extremities, moves toes when prompted, patellar dtr 2/4 bilaterally. Upper extremities decreased public transportation inspector strength and sensory decreased along right arm and hand, normal and improving strenght and sensation on left. - Neurological Exam Neurological exam: Present: alert, motor sensory deficit (as noted above in extremities exam), oriented X3. Absent: facial droop, speech deficit - Psychiatric Psychiatric exam: Present: normal affect, normal mood - Skin Skin exam: Present: dry, intact, normal color, warm. Absent: rash Internal Medicine: Result - Labs CBC & Chem 7: 07/03/17 06:34 07/03/17 06:34 Labs: Short CBC 07/03/17 Range/Units 06:34 WBC 10.5 D (4.3-11.1) K/mcL Hgb 12.9 (12.9-16.9) g/dL Hct 39.9 (37.5-50.1) % Plt Count 232 (140-400) K/mcL Neutrophils # 7.7 (1.6-8.9) K/mcL BMP 07/03/17 06:34 Sodium 141 Potassium 4.1 Chloride 104 Carbon Dioxide 25 BUN 16 Creatinine 1.15 Glucose 115 H Calcium 10.0 - ABG Interpretation ABG results: PT/INR, D-dimer PT 10.8 Seconds (9.4-12.1) 07/01/17 05:17 - Impressions Impressions Cervical Spine X-Ray 07/03/17 08:30 IMPRESSION: Stable cervical alignment status post revision anterior fusion at C4-5. Mild diffuse soft tissue swelling. D/ / Mitesh Yee MD / Mitesh Yee MD Interpreting Provider: Mitesh Yee MD - VTE Documentation of Mechanical Device: Intermittent pneumatic compression device Consult Discharge Plan - Plan Additional Instructions: Discharge Instructions: Cervical Please call [facility] ([phone]), your Primary Care Physician, or report to the ER if you have any of the following symptoms: Fever greater that 101.5, increased pain/redness/drainage/odor for your incision site or any other concerning symptoms. ACTIVITY * May Shower * No Tub Baths * No Smoking * No Swimming * No Driving * Wear Collar when up walking MEDICATIONS: Upon discharge resume your home medications. Take all the medications as prescribed. Take a stool softener if taking narcotic pain medications. Stool softeners are only effective if you drink enough fluids. Drink 6-8 glass of water or fluids a day, unless this is not allowed for another health problem. Despite using stool softeners, if you haven't had a bowel movement in 3 days, please switch to a gentle laxative. Gentle laxatives are sold over the counter. You should have a bowel movement within 24 hours, if not call the office. You will be discharged from the hospital with a prescription for pain medication. You are encouraged to decrease the use of narcotic pain medication as tolerated. Should you require a refill, please call the office. It is best to call 48-72 hours in advance of needing a prescription refill so you don't run out of medication. WOUND CARE: Leave steri-strips in place until they fall off on their own. Pat dry when you get out of the shower. FOLLOW-UP: Please follow up with your surgeon in the orthopedic clinic in 2 weeks from the day of surgery. References: [employer] (www.[email or web address].org) Referrals: Daly Leyva PAC [Physician Automatic Dry Starch Operator] - 07/17/17 10:15 am <Jacky Dumont - Last Filed: 07/04/17 09:28> Date of Encounter: 07/04/17 - Constitutional Vitals: Temp Pulse Resp BP Pulse Ox 97.6 F 81 16 121/67 97 07/04/17 06:56 07/04/17 06:56 07/04/17 06:56 07/04/17 06:56 07/04/17 06:56 Internal Medicine: Result - Labs CBC & Chem 7: 07/03/17 06:34 07/03/17 06:34 - ABG Interpretation ABG results: PT/INR, D-dimer PT 10.8 Seconds (9.4-12.1) 07/01/17 05:17 - Impressions Impressions Cervical Spine X-Ray 07/03/17 08:30 IMPRESSION: Stable cervical alignment status post revision anterior fusion at C4-5. Mild diffuse soft tissue swelling. D/ / Mitesh Yee MD / Mitesh Yee MD Interpreting Provider: Mitesh Yee MD - Attending Attestation I examined this patient and my medical decision-making was reviewed with the Resident Physician. I agree with the documented findings, disposition and treatment plan as described except to the extent set forth below. Patient is stable for discharge
--- NOTE | 2017-07-04 09:30 | Discharge Summary ---
Date of Encounter: 07/04/17 Time of Encounter: 09:28 - Discharge Diagnosis (1) Ambulatory dysfunction Priority: Secondary Status: Acute (2) Cervical disc disease with myelopathy Priority: Secondary Status: Acute (3) Cervical spinal stenosis Priority: Secondary Status: Acute (4) Spinal stenosis, lumbar region Priority: Secondary Status: Acute (5) Stenosis of cervical spine with myelopathy Priority: Primary Status: Acute - Discharge Medications Home Medications: BuPROPion XL (24 HR) [Wellbutrin Xl] 450 mg PO DAILY 06/27/17 [History] Cyclobenzaprine [Flexeril] 10 mg PO TID 06/27/17 [History] DULoxetine [Cymbalta] 90 mg PO DAILY 06/27/17 [History] Diclofenac Sodium (24 HR) [Voltaren XR] 100 mg PO DAILY 06/27/17 [History] Fenofibrate Nanocrystallized [Tricor] 145 mg PO DAILY 06/27/17 [History] HYDROcodone/Acet 7.5/325 mg [[place] 7.5-325 mg] 1 tab PO TID PRN 06/27/17 [ History] [place]-3/Dha/Epa/Fish Oil [Fish Oil 1,000 mg Softgel] 2,000 mg PO DAILY 06/27/17 [History] Simvastatin [Zocor] 40 mg PO HS 06/27/17 [History] Allergies/Adverse Reactions: 3 Allergy/AdvReac Type Severity Reaction Status Date / Time No Known Allergies Allergy Verified 06/27/17 15:05 Date of admission: 06/27/17 20:12 Primary care physician: Koffi Nevarez Colopy Consults: 06/27/17 21:22 Consult to Neurology [CONS] Routine Consulting Provider: [facility] Reason for Consult: Appricate assistance with assesment and optimal management of pt. History of c.spine fusion, and l.spine work. Having LE neuro symptoms, problems walking, and hand numb/ting. MRI should stenosis. Call Completed: No 07/02/17 17:15 Consult to Occupational Therapy [CONS] Routine Comment: Evaluate, develop and implement POC Reason for Consult: Postoperative Consult to Physical Therapy [CONS] Routine Comment: Evaluate, develop and implement POC Reason for Consult: Postoperative Consult to Dish Person [CONS] Routine Reason for SW Consult: Postoperative rehabilitation Consult to Spine Navigator [CONS] [CONS] Routine - Patient Status Disposition: Home, Self-Care Condition: Good Functional capacity at discharge: uses cane/walker Overall status at discharge: patient is progressing back to baseline - Discharge Instructions Follow Up With: Daly Leyva PAC [Physician Hydraulic Operator] - 07/17/17 10:15 am Additional Instructions: Discharge Instructions: Cervical Please call [facility] ([phone]), your Primary Care Physician, or report to the ER if you have any of the following symptoms: Fever greater that 101.5, increased pain/redness/drainage/odor for your incision site or any other concerning symptoms. ACTIVITY * May Shower * No Tub Baths * No Smoking * No Swimming * No Driving * Wear Collar when up walking MEDICATIONS: Upon discharge resume your home medications. Take all the medications as prescribed. Take a stool softener if taking narcotic pain medications. Stool softeners are only effective if you drink enough fluids. Drink 6-8 glass of water or fluids a day, unless this is not allowed for another health problem. Despite using stool softeners, if you haven't had a bowel movement in 3 days, please switch to a gentle laxative. Gentle laxatives are sold over the counter. You should have a bowel movement within 24 hours, if not call the office. You will be discharged from the hospital with a prescription for pain medication. You are encouraged to decrease the use of narcotic pain medication as tolerated. Should you require a refill, please call the office. It is best to call 48-72 hours in advance of needing a prescription refill so you don't run out of medication. WOUND CARE: Leave steri-strips in place until they fall off on their own. Pat dry when you get out of the shower. FOLLOW-UP: Please follow up with your surgeon in the orthopedic clinic in 2 weeks from the day of surgery. References: [employer] (www.apta.org) - Diet and Activity Activity: ambulate only with your walker, as per physical therapy, increase activity as tolerated Diet: advance to your usual diet, regular diet Hospital course: Mr. Collado is a 61 year old male with medical history of disk herniations requiring previous cervical spine fusions (15 years ago with additional fusion following later), depression, and osteoarthritis who presented to [facility] after having a fall with inability to walk at home. He has noticed his decreased strength in his right upper extremity as well as his lower extremities. He had imaging studies which revealed severe spinal stenosis of the cervical and lumbar areas. Spinal surgery and neurology were consulted. On 07/02/2017 he had an operative procedure consisting of anterior fusion exploration with removal of hardware and anterior cervical decompression and fusion of C4-C5. He tolerated the procedure well and he is upper extremity as well as lower extremity weakness have improved significantly. He is able to ambulate without a walker. He was evaluated by physical therapy and was deemed necessary that he undergoes outpatient PT. He was given a referral for outpatient physical therapy and will follow-up with orthopedic surgery. He is medically stable for discharge home. He expresses understanding and is in agreement with the discharge planning. - Time Spent with Patient Total time spent providing and/or coordinating discharge services: Greater than 30 minutes - Constitutional Vitals: Temp Pulse Resp BP Pulse Ox 97.6 F 81 16 121/67 97 07/04/17 06:56 07/04/17 06:56 07/04/17 06:56 07/04/17 06:56 07/04/17 06:56 General appearance: Present: cooperative, A&O X 3, pleasant, no acute distress, answers questions appropriately - Respiratory Respiratory exam: Present: CTAB. Absent: accessory muscle use, rales, rhonchi, wheezes - Cardiovascular Cardiovascular exam: Present: RRR, +S1, +S2. Absent: diastolic murmur, gallop, rubs, systolic murmur - VTE Documentation of Mechanical Device: Intermittent pneumatic compression device
[2017-07-04] MEDS: Diclofenac Sodium (24 HR) 100 MG TABLET PO SCH (10:52)
[2017-07-04] MEDS: Folic Acid 1 MG TABLET PO SCH (10:52)
[2017-07-04] MEDS: Fenofibrate 54 MG TABLET PO SCH (10:52)
[2017-07-04] MEDS: Vitamin B Complex/Vit C/Vit E 1 EACH TABLET PO SCH (10:52)
[2017-07-04] MEDS: Thiamine (B-1) 100 MG TABLET PO SCH (10:52)
== END 2017-07-04 11:10 | disposition home or self-care (01) | DRG 472 ==
LOC: 3NENU 10:56 → EMEROO 10:56 → 3NENU 19:09 → SUATTDRO 20:12
PROVIDERS: ADMIT Internal Medicine; ATTEND Internal Medicine

== ENCOUNTER 2017-07-30 09:01 | Observation (INO) ==
--- NOTE | 2017-07-30 12:48 | Spine - History & Physical Rep ---
Date of Encounter: 07/30/17 Time of Encounter: 12:44 Assessment and Plan (1) Weakness of both lower extremities Current visit: Yes Status: Chronic On exam he is afebrile vital signs are stable. He has a positive Cortney sign. He has weakness in the bilateral lower extremities and multiple motor groups which is approximately 3+ on a motor scale. He has no clonus. His hips move symmetrically. Lungs are clear, cardiovascular regular rate and rhythm, abdomen soft nontender nondistended. MRI of the lumbar spine reveals multilevel degenerative changes and disc desiccation. There is severe stenosis in part doing to facet hypertrophy and a large disc extrusion/ osteophyte complex at L4-5. This causes severe central, foraminal, extraforaminal stenosis at this level. It is greater on the right. . Impression: 1) severe lumbar stenosis 2) bilateral lower extremity weakness which is progressive Plan: Due to his concerning weakness which is progressing and noted by both patient and therapist and confirmed by exam I find it reasonable to consider surgery in the form of a posterior lumbar interbody fusion L4-L5. The patient is going to require a wide decompression due to his severe central and foraminal stenosis which is likely the cause iatrogenic instability. Therefore he will need a lumbar decompression and fusion. Risks benefits possible colic is some attorneys were discussed with the patient and the patient would like to proceed. Patient understands he must undergo medical optimization and clearance measures. (2) Spinal stenosis, lumbar region Current visit: No Status: Chronic Qualifiers: Neurogenic claudication status: unspecified Qualified Code(s): M48.061 - Spinal stenosis, lumbar region without neurogenic claudication History of Present Illness Chief complaint: "Legs getting weaker, hard to walk" HPI: Mr. Collado is a 61 year old male with known cervical myelopathy which was addressed with revision anterior cervical fusion approximately one month ago. He did well with his upper extremity motor function with improved dexterity and radicular symptoms. He had known severe stenosis in the lumbar spine but we were hoping for him to heal from his cervical surgery prior to any surgical intervention of the lumbar spine. His therapist therapist and the patient contacted me with concern for rapidly progressing weakness in the lower extremities over the course of the past week. He is having difficulty now even using his walker. He came into the office today and his worsening neurologic status was confirmed so he is admitted for definitive management. He denies any fevers chills or bowel bladder symptomatology. Past Med Surg Social Fam HX - Past Medical History Medical history: arthritis Psychiatric history: depression - Social History Smoking Status: Never smoker Smokeless Tobacco Status: No Alcohol use: occasionally Drug use: none - Family History Father Living Status: Age at : 68 Cause of : Cancer- GI, bone Hx Family Cancer: Yes Mother Adopted: No Living Status: Age at : 70 Cause of : CVA Hx Family Neurologic Disorders: Yes (CVA) Medications and Allergies BuPROPion XL (24 HR) [Wellbutrin Xl] 450 mg PO DAILY 06/27/17 [History] DULoxetine [Cymbalta] 90 mg PO DAILY 06/27/17 [History] Diclofenac Sodium (24 HR) [Voltaren XR] 100 mg PO DAILY 06/27/17 [History] Fenofibrate Nanocrystallized [Tricor] 145 mg PO DAILY 06/27/17 [History] [place]-3/Dha/Epa/Fish Oil [Fish Oil 1,000 mg Softgel] 2,000 mg PO DAILY 06/27/17 [History] Simvastatin [Zocor] 40 mg PO HS 06/27/17 [History] Baclofen [Lioresal] 10 mg PO Q8H PRN 07/30/17 [History] HYDROcodone/Acet 10/325 mg [[place] 10-325 mg] 1 tab PO Q6HR PRN 07/30/17 [History ] 3 Allergy/AdvReac Type Severity Reaction Status Date / Time No Known Allergies Allergy Verified 06/27/17 15:05 Results - Labs Labs: All other labs normal.
[2017-07-30 13:31] LABS: INR 1.1; Prothrombin Time 11.3 Seconds (9.4-12.1)
[2017-07-30 13:33] LABS: Activated Partial Thrombo Time 29.7 Seconds (26.0-36.0); Basophils # 0.1 K/mcL (0.0-0.2); Basophils % 0.8 %; Eosinophils # 0.3 K/mcL (0.0-0.6); Eosinophils % 4.1 %; Hematocrit 40.4 % (37.5-50.1); Hemoglobin 12.8 g/dL (12.9-16.9); Immature Granulocytes % 0.1 % (0-4); Lymphocytes # 2.4 K/mcL (0.6-4.6); Lymphocytes % 34.1 %; Mean Corpuscular HGB Conc 31.7 g/dL (31.6-35.5); Mean Corpuscular Volume 94.8 fL (83.0-100.0); Mean Platelet Volume 10.2 fL (9.4-12.4); Monocytes # 0.4 K/mcL (0.0-1.3); Neutrophils # 3.9 K/mcL (1.6-8.9); Platelet Count 234 K/mcL (140-400); Red Blood Count 4.26 M/mcL (4.19-5.50); Red Cell Distribution Width 13.1 % (11.5-14.5); Segmented Neutrophils % 54.9 %
[2017-07-30 13:34] LABS: BUN/Creatinine Ratio 19 (6-26); Blood Urea Nitrogen 22 mg/dL (8-26); Calcium 9.8 mg/dL (8.6-10.8); Carbon Dioxide 25 mEq/L (19-29); Chloride 106 mEq/L (98-109); Glucose 102 mg/dL (70-99); Osmolality,Calculated 292 (280-300); Potassium 4.3 mEq/L (3.5-4.5); Sodium 139 mEq/L (136-145); eGFR For African Americans > 60 (> 60); eGFR For Non-African Americans > 60 (> 60)
[2017-07-30] MEDS: Ringers Solution, Lactated 1,000 ML IVC SCH (14:18)
--- NOTE | 2017-07-30 18:06 | Internal Medicine Consult Note ---
<Jacky Dumont - Last Filed: 07/30/17 20:36> Date of Encounter: 07/30/17 Internal Medicine - CN: HPI - Data of Consult Requesting Physician: Antonio Eddy Jr MD - Consult Narrative History of present illness: Mr. Collado is a 61 year old male Internal Medicine - CN: Meds BuPROPion XL (24 HR) [Wellbutrin Xl] 450 mg PO DAILY 06/27/17 [History] DULoxetine [Cymbalta] 90 mg PO DAILY 06/27/17 [History] Diclofenac Sodium (24 HR) [Voltaren XR] 100 mg PO DAILY 06/27/17 [History] Fenofibrate Nanocrystallized [Tricor] 145 mg PO DAILY 06/27/17 [History] [place]-3/Dha/Epa/Fish Oil [Fish Oil 1,000 mg Softgel] 2,000 mg PO DAILY 06/27/17 [History] Simvastatin [Zocor] 40 mg PO HS 06/27/17 [History] Baclofen [Lioresal] 10 mg PO Q8H PRN 07/30/17 [History] HYDROcodone/Acet 10/325 mg [[place] 10-325 mg] 1 tab PO Q6HR PRN 07/30/17 [History ] 3 Allergy/AdvReac Type Severity Reaction Status Date / Time No Known Allergies Allergy Verified 06/27/17 15:05 Internal Medicine - CN: Exam - Constitutional Vitals: Temp Pulse Resp BP Pulse Ox 98 F 68 12 145/83 95 07/30/17 19:40 07/30/17 19:40 07/30/17 19:40 07/30/17 19:40 07/30/17 19:40 Internal Medicine - CN: Reslt - Labs CBC & Chem 7: 07/30/17 13:13 07/30/17 13:13 Labs: Short CBC 07/30/17 Range/Units 13:13 WBC 7.2 (4.3-11.1) K/mcL Hgb 12.8 L (12.9-16.9) g/dL Hct 40.4 (37.5-50.1) % Plt Count 234 (140-400) K/mcL Neutrophils # 3.9 (1.6-8.9) K/mcL BMP 07/30/17 13:13 Sodium 139 Potassium 4.3 Chloride 106 Carbon Dioxide 25 BUN 22 Creatinine 1.16 Glucose 102 H Calcium 9.8 - ABG Interpretation ABG results: PT/INR, D-dimer PT 11.3 Seconds (9.4-12.1) 07/30/17 13:13 - Impressions Impressions Chest X-Ray 07/30/17 19:03 IMPRESSION: No acute findings D/ / Lenore Boyle MD / Lenore Boyle MD Interpreting Provider: Lenore Boyle MD Consult Discharge Plan - Plan Referrals: Koffi Bustamante DO [Primary Care Provider] - - Attending Attestation I have personally performed a face to face evaluation on this patient. I have reviewed and agree with the care plan by the nurse practitioner. History and Exam by me shows: Patient reports decreased strength in both lower extremities. On exam he is in no acute distress with alert oriented. Heart is regular. Lungs are clear. Exercise capacity is less than MET 4 limited by decreased muscle strength and not angina or shortness of breath. He denies chest pain and dyspnea on exertion. He has no active or known heart disease. He is medically optimized for surgery. He has low perioperative risk of cardiovascular complications. Jacky Dumont MD <Anish Borja - Last Filed: 07/30/17 21:11> Date of Encounter: 07/30/17 Time of Encounter: 17:00 - Assessment and Plan (1) Spinal stenosis, lumbar region Current Visit: Yes Status: Chronic Assessment and plan: Hx of spinal stenosis of the lumbar region without neurogenic claudication. Qualifiers: Neurogenic claudication status: unspecified Qualified Code(s): M48.061 - Spinal stenosis, lumbar region without neurogenic claudication (2) Weakness of both lower extremities Current Visit: Yes Status: Chronic Assessment and plan: Patient reports progressively worse weakness in bilateral LEs over the past year. MRI of the lumbar spine reveals multilevel degenerative changes and disc desiccation. Severe stenosis in part due to facet hypertrophy and large disc extrusion/osteophyte complex at L4-5. This causes severe central, foraminal, extraforaminal stenosis at this level which is greater on the right. Falls/ safety precautions ordered. (3) Depression Current Visit: Yes Status: Chronic Assessment and plan: Hx of chronic depression. Patient to continue Cymbalta and Wellbutrin. Qualifiers: Depression Type: other depression Qualified Code(s): F32.89 - Other specified depressive episodes (4) Arthritis Current Visit: Yes Status: Chronic Assessment and plan: Hx of chronic arthritis. Patient to continue Voltaren XR. (5) DVT prophylaxis Current Visit: Yes Status: Acute Assessment and plan: Bilateral SCDs to be placed on patient's LEs for DVT prophylaxis due to surgery in a.m. Internal Medicine - CN: HPI - Data of Consult Patient: new to practice Requesting Physician: Antonio Eddy Jr MD - Consult Narrative Reason for consult: Perioperative assessment and clearance History of present illness: Mr. Collado is a 61 year old male with medical history of arthritis presents for perioperative clearance for spine surgery tomorrow. Patient is a 61 year-old male with chief complaint of progressive weakness of the bilateral LEs which he reports has become progressively worse over the past year. Patient states the weakness began as sciatica. He reports he has fallen >25x in the past month. During the last incident he states that he was unable to pick himself up from the fall. He reports difficulty ambulating even with his walker at this time. Patient reports having cervical surgery for fusion of plates on 07/02/17 which he states helped him. Patient states that after his surgery in June he became incontinent of urine which has resolved somewhat to dribbling. Patient also reports bilateral hand numbness from the wrist to the tips of the fingers and difficulty swallowing since the surgery in June. On examination,patient 's HR is RRR, lungs are clear on auscultation, and abdomen is soft, non-tender, and non-distended. MRI of the spine shows multilevel degenerative changes and disc desiccation, severe stenosis to in part to facet hypertrophy and large disc extrusion/osteophyte complex at L4-5; severe central, foraminal, extraforaminal stenosis which is greater on the right. EKG today at 17:42:58 shows sinus rhythm with nonspecific T-wave abnormality, borderline ECG. Repeat EKG at 20:19:36 also shows sinus rhythm with nonspecific T-wave abnormality, borderline ECG and is unchanged. Patient denies any cardiac history, CHF, COPD, diabetes, recent illness, fever, chills, nausea, vomiting, headache, changes in vision, abdominal pain, numbness, tingling, neurological deficits, weakness, unusual bleeding, presyncope, or syncope. Patient's revised cardiac risk index ( RCRI) shows no risk factors (0.4%) for cardiac , nonfatal myocardial infarction, and nonfatal cardiac arrest according to the number of predictors. Past Med Surg Social Fam HX - Past Medical History Source: patient Medical history: arthritis Psychiatric history: depression - Past Surgical History Surgical History: orthopedic, other (Cervical neck fusion) - Social History Smoking Status: Never smoker Smokeless Tobacco Status: No Alcohol use: occasionally Drug use: none Current living situation: Home Activity Level: Uses cane/walker Recent Out of Country Travel Within the Last 8 Weeks: No Exposure or Possible Exposure to Illness During Travel: No - Family History Father Race: Family Member Ethnicity: Non- Living Status: Age at : 68 Cause of : Cancer- GI, bone Hx Family Cancer: Yes (GI, Bone) Mother Adopted: No Race: Family Member Ethnicity: Non- Living Status: Age at : 70 Cause of : CVA Hx Family Neurologic Disorders: Yes (CVA) Sister Race: Family Member Ethnicity: Non- Living Status: Still Living Hx Family Medical Disorders: No - Constitutional Constitutional: falls, weakness (Bilateral LEs) - EENT Eyes: as per HPI Ears: as per HPI Nose, mouth and throat: as per HPI - Breasts Breasts: as per HPI - Cardiovascular Cardiovascular ROS IM: as per HPI - Respiratory Respiratory: as per HPI - Gastrointestinal Gastrointestinal: as per HPI - Genitourinary Genitourinary ROS male: as per HPI - Musculoskeletal Musculoskeletal ROS IM: as per HPI - Integumentary Integumentary IM: as per HPI - Neurological Neurological ROS: as per HPI - Psychiatric Psychiatric: as per HPI - Endocrine Endocrine IM: as per HPI - Hematologic/Lymphatic Hematologic/Lymphatic: as per HPI - Allergic/Immunologic Allergic/Immunologic: as per HPI Internal Medicine - CN: Exam - Constitutional Vitals: Temp Pulse Resp BP Pulse Ox 98.2 F 64 16 129/68 96 07/30/17 15:28 07/30/17 15:28 07/30/17 15:28 07/30/17 15:28 07/30/17 15:28 General appearance IM: Present: cooperative, A&O X 3, pleasant, no acute distress, answers questions appropriately - Head Head exam: Present: atraumatic, normal inspection, normocephalic - Eye Eye exam: Present: normal appearance, PERRL, conjuntiva pink Pupils: Present: normal accommodation, PERRL - ENT ENT exam: Present: normal exam - Neck Neck exam general surgery: Present: normal inspection, supple, trachea midline - Respiratory Respiratory exam: Present: CTAB - Cardiovascular Cardiovascular exam IM: Present: RRR, +S1, +S2 - GI/Abdominal GI/Abdominal exam IM: Present: normal bowel sounds, soft, no peritoneal signs - Rectal Rectal exam: Present: deferred - Additional comments: exam deferred. - Extremities Exam Extremities exam IM: Present: normal inspection, warm, radial pulses palpable and symmetrical - Back Exam Back exam: Present: normal inspection - Neurological Exam Neurological exam: Present: alert, CN II-XII intact, oriented X3 - Expanded Neurological Exam Sensory exam: lower extremity light touch: Normal, lower extremity pin prick: Normal, upper extremity light touch: Normal, upper extremity pin prick: Normal - Psychiatric Psychiatric exam: Present: normal affect, normal mood - Skin Skin exam IM: Present: dry, intact Internal Medicine - CN: Reslt - Labs CBC & Chem 7: 07/30/17 13:13 07/30/17 13:13 Labs: Short CBC 07/30/17 Range/Units 13:13 WBC 7.2 (4.3-11.1) K/mcL Hgb 12.8 L (12.9-16.9) g/dL Hct 40.4 (37.5-50.1) % Plt Count 234 (140-400) K/mcL Neutrophils # 3.9 (1.6-8.9) K/mcL BMP 07/30/17 13:13 Sodium 139 Potassium 4.3 Chloride 106 Carbon Dioxide 25 BUN 22 Creatinine 1.16 Glucose 102 H Calcium 9.8 - ABG Interpretation ABG results: PT/INR, D-dimer PT 11.3 Seconds (9.4-12.1) 07/30/17 13:13 - EKG Data EKG shows normal: sinus rhythm - EKG Data Prior EKG available for review: yes EKG comments: 07/30/17 20:03 EKG dated 07/29/17 17:42:58 shows sinus rhythm with nonspecific T-wave abnormality. Borderline ECG.
--- NOTE | 2017-07-30 18:13 | Electrocardiograph Report ---
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
[2017-07-30] MEDS ORDERED: diazePAM 10 MG/2 ML SYRINGE IVP PRN (19:05)
[2017-07-31] MEDS: Ringers Solution, Lactated 1,000 ML IVC SCH (05:02)
[2017-07-31] MEDS ORDERED: Folic Acid 1 MG TABLET PO SCH (09:00)
[2017-07-31] MEDS ORDERED: Vitamin B Complex/Vit C/Vit E 1 EACH TABLET PO SCH (09:00)
[2017-07-31] MEDS ORDERED: Thiamine (B-1) 100 MG TABLET PO SCH (09:00)
--- NOTE | 2017-07-31 12:47 | Electrocardiograph Report ---
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
[2017-07-31] MEDS ORDERED: *HR* FentaNYL (PF) 100 MCG/2 ML VIAL ONE ×2 (15:35→15:54)
[2017-07-31] MEDS ORDERED: Ondansetron 4 MG/2 ML VIAL ONE (15:35)
[2017-07-31] MEDS ORDERED: Lidocaine -MPF 2% 2 ML VIAL ONE (15:35)
[2017-07-31] MEDS ORDERED: *HR* Rocuronium Bromide 50 MG/5 ML VIAL ONE (15:35)
[2017-07-31] MEDS ORDERED: Ketorolac 30 MG/ML VIAL ONE (15:35)
[2017-07-31] MEDS ORDERED: *HR* Succinylcholine 200 MG/10 ML VIAL IVP ONE (15:35)
[2017-07-31] MEDS ORDERED: Dexamethasone 4 MG/ML VIAL ONE (15:35)
[2017-07-31] MEDS ORDERED: *HR* Midazolam HCl 2 MG/2 ML VIAL ONE (15:35)
[2017-07-31] MEDS ORDERED: *HR* Propofol 200 MG/20 ML VIAL IVP ONE (15:35)
--- NOTE | 2017-07-31 16:27 | Anesthesia Evaluation PreOp ---
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 Patient has upper as well as lower extremity numbness and weakness.) Other Medical History: Denies Any Significant HX Anesthesia History: No Prior Anesthetic Complications, Past Anesthesia Alcohol Use: occasionally Drug use: none Medications and Allergies BuPROPion XL (24 HR) [Wellbutrin Xl] 450 mg PO DAILY 06/27/17 [History] DULoxetine [Cymbalta] 90 mg PO DAILY 06/27/17 [History] Diclofenac Sodium (24 HR) [Voltaren XR] 100 mg PO DAILY 06/27/17 [History] Fenofibrate Nanocrystallized [Tricor] 145 mg PO DAILY 06/27/17 [History] [place]-3/Dha/Epa/Fish Oil [Fish Oil 1,000 mg Softgel] 2,000 mg PO DAILY 06/27/17 [History] Simvastatin [Zocor] 40 mg PO HS 06/27/17 [History] Baclofen [Lioresal] 10 mg PO Q8H PRN 07/30/17 [History] HYDROcodone/Acet 10/325 mg [[place] 10-325 mg] 1 tab PO Q6HR PRN 07/30/17 [History ] 3 Allergy/AdvReac Type Severity Reaction Status Date / Time No Known Allergies Allergy Verified 06/27/17 15:05 - Meds/Allergy Pre-op Review Medications Reviewed: Yes Allergies Reviewed: Yes Beta Blockers on Current Med List: No Anesthesia Results - Labs 07/30/17 13:13 07/30/17 13:13 - Imaging EKG: report reviewed, image reviewed Anesthesia Exam Selected Entries 07/31/17 15:41 Temperature 97.9 F Pulse Rate 65 Respiratory Rate 17 Blood Pressure 136/80 O2 Sat by Pulse Oximetry 95 Weight: 84 kg. NPO (# of Hours): over 8 hours - HEENT Pupil (Motor): Pupils equal Mallampati: IV Oral Opening: Greater than 3 - Cardiac Rhythm: Regular Murmur: None - Pulmonary Breath Sounds: bilateral Clear Respiratory Effort: Symmetrical Anesthesia Assess/Plan ASA Score: 2 Modified [place] Scale for Level of Consciousness: Cooperative, oriented, and tranquil Anesthetic Plan: General Monitoring Plan: Standard Monitors Recovery Plan: PACU
--- NOTE | 2017-07-31 16:34 | Internal Med Progress Note ---
Date of Encounter: 07/31/17 Time of Encounter: 16:24 - Assessment and plan (1) Spinal stenosis, lumbar region Current Visit: Yes Status: Chronic Assessment and plan: Tulio Collado is a [place] 1-year-old male with past medical history spinal stenosis who presented to [facility] on 07/30/2017 with complaints of lower extremity weakness. He was found to have severe lumbar stenosis and was admitted for surgical intervention. Evongee was consult for medical management. 1. Severe lumbar stenosis: Symptomatic with progressive lower extremity weakness. Outpatient L-spine MRI showed a large disc extrusion at postop level SHAYLA-5 resulting in severe spinal canal stenosis and severe bilateral L4 foraminal narrowing. Plan for PLIF 4-L5 per Dr. Escobar. Postoperative management including pain control, mobility, DVT prophylaxis per primary team. 2. Alcohol abuse: Patient reports drinking a beer every once in a while. CIWA initiated on admission. No previous history of alcohol withdrawal, DTs. Continue to monitor on CIWA for now. 3. DVT prophylaxis: SCDs Qualifiers: Neurogenic claudication status: unspecified Qualified Code(s): M48.061 - Spinal stenosis, lumbar region without neurogenic claudication (2) Alcohol dependence Current Visit: No Status: Acute Qualifiers: Qualified Code(s): F10.20 - Alcohol dependence, uncomplicated (3) DVT prophylaxis Current Visit: Yes Status: Acute - Subjective Interval history: Seen and examined at bedside at approximately 09 100 this morning. Patient is new to me, information obtained from chart review and patient report. Patient says he is doing okay, anxious for surgery. Says lower extremity weakness is about the same. No numbness tingling. No pain, no chest pain or shortness of breath. - Constitutional Vitals: Temp Pulse Resp BP Pulse Ox 97.9 F 65 17 136/80 95 07/31/17 15:41 07/31/17 15:41 07/31/17 15:41 07/31/17 15:41 07/31/17 15:41 General appearance: Present: cooperative, A&O X 3, pleasant, no acute distress, answers questions appropriately - Head Head exam: Present: atraumatic, normocephalic - Eye Eye exam: Present: PERRL, conjuntiva pink, sclera anicteric Pupils: Present: PERRL - Neck Neck exam general surgery: Present: supple, trachea midline. Absent: lymphadenopathy - Respiratory Respiratory exam: Present: CTAB. Absent: accessory muscle use, rales, rhonchi, wheezes - Cardiovascular Cardiovascular exam: Present: RRR, +S1, +S2. Absent: diastolic murmur, gallop, rubs, systolic murmur - GI/Abdominal GI/Abdominal exam: Present: normal bowel sounds, soft, no peritoneal signs. Absent: distended, tenderness - Extremities Exam Extremities exam: Present: warm, radial pulses palpable and symmetrical. Absent : calf tenderness, cyanotic, pedal edema - Neurological Exam Neurological exam: Present: CN II-XII intact, oriented X3, no focal deficits. Absent: pronater drift, facial droop, speech deficit - Skin Skin exam: Present: dry, intact Internal Medicine: Result - Labs CBC & Chem 7: 07/30/17 13:13 07/30/17 13:13 - ABG Interpretation ABG results: PT/INR, D-dimer PT 11.3 Seconds (9.4-12.1) 07/30/17 13:13 - Impressions Impressions Chest X-Ray 07/30/17 19:03 IMPRESSION: No acute findings D/ / Lenore Boyle MD / Lenore Boyle MD Interpreting Provider: Lenore Boyle MD Consult Discharge Plan - Plan Referrals: Koffi Bustamante DO [Primary Care Provider] -
[2017-07-31] MEDS ORDERED: *HR* Remifentanil 1 MG VIAL IVP ONE (17:01)
[2017-07-31] MEDS ORDERED: EPHEDrine 50 MG/ML VIAL ONE (17:21)
[2017-07-31] MEDS ORDERED: *HR* HYDROmorphone (PF) 1 MG/ML SYRINGE IVP PRN (17:45)
[2017-07-31] MEDS ORDERED: Albuterol 2.5 MG/3 ML NEBULIZER IH PRN (17:45)
[2017-07-31] MEDS ORDERED: *HR* Promethazine 25 MG/ML VIAL IVP PRN (17:45)
[2017-07-31] MEDS ORDERED: Thiamine (B-1) 100 MG, Folic Acid 1 MG, MVI, adult with vitamin K 10 ML in 0.9 % Sodi... IVPB SCH (18:00)
[2017-07-31] MEDS ORDERED: *HR* HYDROmorphone 2 MG/ML SYRINGE ONE (18:50)
--- NOTE | 2017-07-31 19:30 | Orthopedic Operative Note ---
Date of procedure: 07/31/17 Pre-op diagnosis: Lumbar stenosis, leg weakness Post-op diagnosis: same Operation/Findings: Posterior lumbar interbody fusion L4-L5: The patient successfully underwent general endotracheal anesthesia. The patient was given antibiotics prior to the start of the procedure. Compression boots and stockings were used for deep vein thrombosis prophylaxis. A Olmos catheter was placed. Leads for neuro monitoring were placed on the upper and lower extremities. This included the cranium. The neuro monitoring personnel confirmed there were satisfactory readings prior to the start of the procedure. The patient was turned prone on the Julio table. The back was prepped and draped in the usual sterile fashion. An incision was was marked and centered over the involved L4-L5 levels in the mid line. The incision was deepened through the lumbar fascia. Bovie cautery and Merino elevators were used to reflect the paraspinal musculature at the lateral extent of the transverse processes of the involved L4 and L5 levels. Babs clamps were placed over the L4 and L5 spinous processes. An intraoperative lateral fluoroscopy graft was obtained. A conversation was held between the surgeon and radiologist and both confirmed we had the correct operative levels. We then placed pedicle screws in standard fashion with the aid of fluoroscopy and anatomic landmarks. Briefly a starter awl was used. A gearshift was subsequently used to enter the airline pilot flight instructor hole via a transpedicular route into the vertebral body. The airline pilot flight instructor hole was tapped with an undersized instrument, and subsequently four 6.5 x 40 mm pedicle screws were placed bilaterally at the indicated L4 and L5 levels. The screws were tested with the aid of the neurologic monitoring staff via pedicle screw stimulation. All reading suggested there was no significant cortical wall breech. The screws were also evaluated fluoro- graphically and appeared to be in satisfactory position. We then turned our attention to the decompression portion of the procedure. We removed the supraspinous and interspinous ligaments and subsequently the insertion of the ligamentum flavum on the undersurface of the proximal L4 lamina was dislodged with a curette. We then removed the ligamentum flavum as well as undercut the L4-L5 facets at this L4- L5 level to decompress the lateral recesses. We also performed a L4 laminectomy. After the decompression, which was over and above that which was required to place the interbody graft, the foramen and traversing roots at this L4-L5 level were found to be free and patent. We also took part of the medial facets in order to aid in the decompression. We then protected the neural elements including the thecal sac and traversing nerve root on the left with a dural retractor. We made an annulotomy into the L4-L5 disc space and then removed the entire disc material using Pituitary instruments. We trialed various size grafts after the endplates were prepared for graft insertion. A 10 x 26 enter body graft fit well within the L4-L5 disc space. We obtained some bone from the left posterior superior iliac spine through us a separate incision and combined with this with the bone which we had saved from the laminectomy portion of the procedure. This autograft bone was first placed in the anterior portion of the L4-L5 disc space and additional bone was placed within the interbody graft spacer. We then placed the interbody graft spacer obliquely across the L4-L5 disc space towards the midline while protecting the neural elements with a root retractor. When the graft was found to be in satisfactory position the veterinary technician assistant was removed. We then copiously irrigated the wound. We then decorticated the L4 and L5 transverse processes as well as the L4-L5 facet joints of the involved L4 and L5 levels to aid in the posterolateral fusion. We placed autograft bone in the lateral gutters over these regions. We then placed rods within the screw heads of the involved levels and first locked the distal screws and then subsequently locked the proximal screws so as to improve and reduce the spondylolisthesis previously seen. We then closed the wound in layers with 1 Vicryl for the fascia, 2-0 Vicryl. Subcutaneous tissue, and Dermabond was used for skin closure. Sterile dressings were placed over the wound. The patient was turned supine on a hospital bed and extubated. All sponge instruments and needle counts were correct at the end of the procedure. The patient tolerated the procedure well without complications. Anesthesia: GETA Surgeon: Antonio Eddy Jr Estimated blood loss (cc): 200 Condition: stable Disposition: PACU
[2017-07-31] MEDS ORDERED: *HR* Morphine 2 MG/ML SYRINGE IVP PRN (20:44)
[2017-07-31] MEDS ORDERED: Baclofen 10 MG TABLET PO PRN (20:44)
[2017-07-31] MEDS ORDERED: Ringers Solution, Lactated 1,000 ML IVC SCH (20:44)
[2017-07-31] MEDS ORDERED: Ondansetron 4 MG/2 ML VIAL IVP PRN (20:44)
[2017-07-31] MEDS ORDERED: Naloxone 0.4 MG/ML INJ IVP PRN (20:44)
[2017-07-31] MEDS ORDERED: Acetaminophen 325 MG TABLET PO PRN (20:44)
[2017-07-31] MEDS: ceFAZolin 2,000 MG in D5% in Water 100 ML IVPB SCH (23:23)
[2017-08-01] MEDS: *HR* OxyCODONE Immed Rel 5 MG TABLET PO PRN ×2 (02:07→14:53)
[2017-08-01 06:22] LABS: Basophils % 0.1 %; Immature Granulocytes % 0.3 % (0-4); Lymphocytes # 1.1 K/mcL (0.6-4.6); Lymphocytes % 11.8 %; Mean Corpuscular Volume 93.8 fL (83.0-100.0); Mean Platelet Volume 10.5 fL (9.4-12.4); Monocytes # 0.7 K/mcL (0.0-1.3); Monocytes % 7.3 %; Neutrophils # 7.8 K/mcL (1.6-8.9); Platelet Count 228 K/mcL (140-400); Red Blood Count 3.52 M/mcL (4.19-5.50); Red Cell Distribution Width 12.8 % (11.5-14.5); Segmented Neutrophils % 80.5 %
[2017-08-01 06:32] LABS: BUN/Creatinine Ratio 17 (6-26); Blood Urea Nitrogen 19 mg/dL (8-26); Calcium 9.2 mg/dL (8.6-10.8); Carbon Dioxide 27 mEq/L (19-29); Chloride 103 mEq/L (98-109); Glucose 137 mg/dL (70-99); Osmolality,Calculated 288 (280-300); Potassium 4.2 mEq/L (3.5-4.5); Sodium 137 mEq/L (136-145); eGFR For African Americans > 60 (> 60); eGFR For Non-African Americans > 60 (> 60)
[2017-08-01 06:33] LABS: Hemoglobin 10.9 g/dL (12.9-16.9)
[2017-08-01] MEDS: ceFAZolin 2,000 MG in D5% in Water 100 ML IVPB SCH (08:59)
[2017-08-01] MEDS: Fenofibrate 54 MG TABLET PO SCH (09:00)
[2017-08-01] MEDS ORDERED: (Fish Oil 1,000 Mg Softgel) PO SCH (09:00)
[2017-08-01] MEDS: BuPROPion XL (24 HR) 150 MG TABLET PO SCH (09:00)
[2017-08-01] MEDS: Diclofenac Sodium (24 HR) 100 MG TABLET PO SCH (09:16)
[2017-08-01] MEDS ORDERED: Temazepam 15 MG CAPSULE PO PRN (13:32)
--- NOTE | 2017-08-01 15:32 | Spine Progress Note ---
Date of Encounter: 08/01/17 Time of Encounter: 15:31 - Assessment and Plan (1) Weakness of both lower extremities Current Visit: Yes Status: Chronic On exam he is afebrile vital signs are stable. He has a positive Cortney sign. He has weakness in the bilateral lower extremities and multiple motor groups which is approximately 3+ on a motor scale. He has no clonus. His hips move symmetrically. Lungs are clear, cardiovascular regular rate and rhythm, abdomen soft nontender nondistended. MRI of the lumbar spine reveals multilevel degenerative changes and disc desiccation. There is severe stenosis in part doing to facet hypertrophy and a large disc extrusion/ osteophyte complex at L4-5. This causes severe central, foraminal, extraforaminal stenosis at this level. It is greater on the right. . Impression: 1) severe lumbar stenosis 2) bilateral lower extremity weakness which is progressive Plan: Due to his concerning weakness which is progressing and noted by both patient and therapist and confirmed by exam I find it reasonable to consider surgery in the form of a posterior lumbar interbody fusion L4-L5. The patient is going to require a wide decompression due to his severe central and foraminal stenosis which is likely the cause iatrogenic instability. Therefore he will need a lumbar decompression and fusion. Risks benefits possible colic is some attorneys were discussed with the patient and the patient would like to proceed. Patient understands he must undergo medical optimization and clearance measures. (2) Spinal stenosis, lumbar region Current Visit: Yes Status: Chronic Qualifiers: Neurogenic claudication status: unspecified Qualified Code(s): M48.061 - Spinal stenosis, lumbar region without neurogenic claudication Subjective Principal diagnosis: Lumbar stenosis, bilateral leg weakness Interval history: The patient is without complaints. Afebrile vital signs are stable. Dressing is clean dry and intact. Neurovascularly intact with regard to bilateral lower extremities. Fires all upper and lower extremity motor groups. Assessment : stable. Plan mobilize ,continue analgesics, discharge planning. Objective Vital signs: Vital Signs Temp Pulse Resp BP Pulse Ox 08/01/17 12:10 98.8 F 72 15 133/62 99 08/01/17 08:50 98.1 F 74 150/84 97 08/01/17 05:09 98.3 F 77 18 120/67 95 08/01/17 00:32 98.1 F 79 14 126/75 96 08/01/17 00:24 98.5 F 78 16 125/66 97 07/31/17 23:28 98.2 F 76 16 133/59 96 07/31/17 22:15 98.8 F 89 16 138/84 95 07/31/17 21:20 98.2 F 78 16 130/83 95 07/31/17 21:16 98.2 F 88 16 120/73 07/31/17 20:18 97.8 F 80 16 132/88 96 07/31/17 20:08 97.8 F 90 16 145/27 96 07/31/17 19:58 90 16 127/63 95 07/31/17 19:48 87 16 140/57 96 07/31/17 19:38 97.2 F L 92 12 137/82 98 07/31/17 15:41 97.9 F 65 17 136/80 95 Intake and Output 07/31/17 08/01/17 08/01/17 23:59 07:59 15:59 Intake Total 100 / 100 180 / 180 Output Total 200 / 200 825 / 825 200 / 200 Balance -200 / -200 -725 / -725 -20 / -20 Intake: IV Fluids 100 / 100 Ancef 2,000 MG In Dextrose 5% 100 / 100 100 ML @ 200 mls/hr IVPB Q8HR [facility] Rx#:[id number] Oral 180 / 180 Output: Urine 200 / 200 Estimated Blood Loss 200 / 200 Catheter 825 / 825 Other: Meal Breakfast Percent of Meal Consumed 100% - Labs CBC & BMP: 08/01/17 05:36 08/01/17 05:36 Labs: Abnormal lab results RBC 3.52 M/mcL (4.19-5.50) L 08/01/17 05:36 Hgb 10.9 g/dL (12.9-16.9) L D 08/01/17 05:36 Hct 33.0 % (37.5-50.1) L 08/01/17 05:36 Glucose 137 mg/dL (70-99) H 08/01/17 05:36 Consult Discharge Plan - Plan Referrals: Daly Leyva PAC [Physician Victims Advocate Clerk/Specialist] - 08/14/17 11:00 am Koffi Bustamante DO [Primary Care Provider] - Antonio Eddy Jr, MD [Partnered Physician] - 08/23/17 3:00 pm Vasile Herrera MD [Partnered Physician] - 08/16/17 2:15 pm
--- NOTE | 2017-08-01 16:55 | Internal Med Progress Note ---
Date of Encounter: 08/01/17 Time of Encounter: 15:30 - Assessment and plan (1) Spinal stenosis, lumbar region Current Visit: Yes Status: Chronic Assessment and plan: Tulio Collado is a [place] 1-year-old male with past medical history spinal stenosis who presented to [facility] on 07/30/2017 with complaints of lower extremity weakness. He was found to have severe lumbar stenosis and was admitted for surgical intervention. Evongee was consult for medical management. 1. Severe lumbar stenosis: Symptomatic with progressive lower extremity weakness. Outpatient L-spine MRI showed a large disc extrusion at postop level SHAYLA-5 resulting in severe spinal canal stenosis and severe bilateral L4 foraminal narrowing. S/p PLIF L4-L5 per Dr. Escobar on 07/31/2047. Postoperative management including pain control, mobility, DVT prophylaxis per primary team. 2. Blood loss anemia: Hgb 10.9 postoperatively. Baseline Hgb appears to be 12- 13. Hemodynamically stable, no tachycardia, no hypertension. No active bleeding. Monitor repeat CBC. 2. Alcohol abuse: Reported drinking a beer "every once in a while". CIWA initiated on admission. No previous history of alcohol withdrawal, DTs. Initially monitored with CIWA, he did not trigger or score. CIWA discontinued. 3. DVT prophylaxis: SCDs Qualifiers: Neurogenic claudication status: unspecified Qualified Code(s): M48.061 - Spinal stenosis, lumbar region without neurogenic claudication (2) Alcohol dependence Current Visit: No Status: Acute Qualifiers: Qualified Code(s): F10.20 - Alcohol dependence, uncomplicated (3) DVT prophylaxis Current Visit: Yes Status: Acute - Subjective Interval history: Seen and examined at bedside; he is sitting in chair at the bedside. Has some lower back pain says he just received pain medicine which has been helping. He is anticipating going home tomorrow. No numbness and tingling to lower extremities. Says he has not slept since surgery. No chest pain, no shortness of breath - Constitutional Vitals: Temp Pulse Resp BP Pulse Ox 97.5 F L 74 16 132/78 98 08/01/17 16:28 08/01/17 16:28 08/01/17 16:28 08/01/17 16:28 08/01/17 16:28 General appearance: Present: cooperative, A&O X 3, pleasant, no acute distress, answers questions appropriately - Head Head exam: Present: atraumatic, normocephalic - Eye Eye exam: Present: PERRL, conjuntiva pink, sclera anicteric Pupils: Present: PERRL - Neck Neck exam general surgery: Present: supple, trachea midline. Absent: lymphadenopathy - Respiratory Respiratory exam: Present: CTAB. Absent: accessory muscle use, rales, rhonchi, wheezes - Cardiovascular Cardiovascular exam: Present: RRR, +S1, +S2. Absent: diastolic murmur, gallop, rubs, systolic murmur - GI/Abdominal GI/Abdominal exam: Present: normal bowel sounds, soft, no peritoneal signs. Absent: distended, tenderness - Extremities Exam Extremities exam: Present: warm, radial pulses palpable and symmetrical. Absent : calf tenderness, cyanotic, pedal edema - Neurological Exam Neurological exam: Present: CN II-XII intact, oriented X3, no focal deficits. Absent: pronater drift, facial droop, speech deficit - Skin Skin exam: Present: dry Additional comments: Lower back incision with a dressing clean dry and intact Internal Medicine: Result - Labs CBC & Chem 7: 08/01/17 05:36 08/01/17 05:36 Labs: Short CBC 08/01/17 Range/Units 05:36 WBC 9.7 (4.3-11.1) K/mcL Hgb 10.9 L D (12.9-16.9) g/dL Hct 33.0 L (37.5-50.1) % Plt Count 228 (140-400) K/mcL Neutrophils # 7.8 (1.6-8.9) K/mcL BMP 08/01/17 05:36 Sodium 137 Potassium 4.2 Chloride 103 Carbon Dioxide 27 BUN 19 Creatinine 1.13 Glucose 137 H Calcium 9.2 - ABG Interpretation ABG results: PT/INR, D-dimer PT 11.3 Seconds (9.4-12.1) 07/30/17 13:13 - Impressions Impressions Fluoroscopy 07/31/17 17:05 IMPRESSION: Intraprocedural fluoroscopic spot images as above. See separate procedure report for more information. D/ / Nate Ludwig MD / Nate Ludwig MD Interpreting Provider: Nate Ludwig MD Lumbar Spine X-Ray 07/31/17 17:05 IMPRESSION: Postoperative changes from posterior fusion at L4-5 with disc spacer at L4-5 D/ / Sergio De La Cruz MD / Sergio De La Cruz MD Interpreting Provider: Sergio De La Cruz MD - VTE Documentation of Mechanical Device: Intermittent pneumatic compression device Consult Discharge Plan - Plan Referrals: Daly Leyva PAC [Physician Director Of Veterans Affairs] - 08/14/17 11:00 am Koffi Bustamante DO [Primary Care Provider] - Antonio Eddy Jr, MD [Partnered Physician] - 08/23/17 3:00 pm Vasile Herrera MD [Partnered Physician] - 08/16/17 2:15 pm
[2017-08-02] MEDS: Diclofenac Sodium (24 HR) 100 MG TABLET PO SCH (09:52)
[2017-08-02] MEDS: BuPROPion XL (24 HR) 150 MG TABLET PO SCH (09:53)
[2017-08-02] MEDS: Fenofibrate 54 MG TABLET PO SCH (09:53)
[2017-08-02 11:01] VITALS: BP 122/64
--- NOTE | 2017-08-02 14:31 | Discharge Summary ---
Date of Encounter: 08/02/17 Time of Encounter: 14:29 - Discharge Diagnosis (1) Weakness of both lower extremities Priority: Secondary Status: Chronic (2) Spinal stenosis, lumbar region Priority: Primary Status: Chronic Qualifiers: Neurogenic claudication status: without neurogenic claudication Qualified Code(s): M48.061 - Spinal stenosis, lumbar region without neurogenic claudication - Discharge Medications Prescriptions: OxyCODONE Immed Rel [Roxicodone 5 MG] 5 mg PO Q6HR PRN #28 tablet PRN Reason: Severe Pain Home Medications: BuPROPion XL (24 HR) [Wellbutrin Xl] 450 mg PO DAILY 06/27/17 [History] DULoxetine [Cymbalta] 90 mg PO DAILY 06/27/17 [History] Diclofenac Sodium (24 HR) [Voltaren XR] 100 mg PO DAILY 06/27/17 [History] Fenofibrate Nanocrystallized [Tricor] 145 mg PO DAILY 06/27/17 [History] [place]-3/Dha/Epa/Fish Oil [Fish Oil 1,000 mg Softgel] 2,000 mg PO DAILY 06/27/17 [History] Simvastatin [Zocor] 40 mg PO HS 06/27/17 [History] Baclofen [Lioresal] 10 mg PO Q8H PRN 07/30/17 [History] HYDROcodone/Acet 10/325 mg [[place] 10-325 mg] 1 tab PO Q6HR PRN 07/30/17 [History ] OxyCODONE Immed Rel [Roxicodone 5 MG] 5 mg PO Q6HR PRN #28 tablet 08/02/17 [Rx] Allergies/Adverse Reactions: 3 Allergy/AdvReac Type Severity Reaction Status Date / Time No Known Allergies Allergy Verified 06/27/17 15:05 - Impressions ITS Impressions Chest X-Ray 07/30/17 19:03 IMPRESSION: No acute findings D/ / Lenore Boyle MD / Lenore Boyle MD Interpreting Provider: Lenore Boyle MD Fluoroscopy 07/31/17 17:05 IMPRESSION: Intraprocedural fluoroscopic spot images as above. See separate procedure report for more information. D/ / Nate Ludwig MD / Nate Ludwig MD Interpreting Provider: Nate Ludwig MD Lumbar Spine X-Ray 07/31/17 17:05 IMPRESSION: Postoperative changes from posterior fusion at L4-5 with disc spacer at L4-5 D/ / Sergio De La Cruz MD / Sergio De La Cruz MD Interpreting Provider: Sergio De La Cruz MD Lumbar Spine X-Ray 08/02/17 09:15 IMPRESSION: Postsurgical change from lumbar fusion at L4-L5 without evidence of hardware complication. D/ / Ricardo Aguilar MD / Ricardo Aguilar MD Interpreting Provider: Ricardo Aguilar MD Date of admission: 07/30/17 09:10 Primary care physician: Koffi Bustamante Consults: 07/31/17 20:44 Consult to Occupational Therapy [CONS] Routine Comment: Evaluate, develop and implement POC Reason for Consult: Postoperative Consult to Physical Therapy [CONS] Routine Comment: Evaluate, develop and implement POC Reason for Consult: Postoperative rehabilitation Consult to Wood Technologist [CONS] Routine Reason for SW Consult: Postoperative rehabilitation Consult to Spine Navigator [CONS] [CONS] Routine - Patient Status Disposition: Home, Self-Care Condition: Good Functional capacity at discharge: uses cane/walker Overall status at discharge: patient is progressing back to baseline - Discharge Instructions Follow Up With: Daly Leyva PAC [Physician Manpower Development Specialist] - 08/14/17 11:00 am Koffi Bustamante DO [Primary Care Provider] - Antonio Eddy Jr, MD [Partnered Physician] - 08/23/17 3:00 pm Vaisle Herrera MD [Partnered Physician] - 08/16/17 2:15 pm Additional Instructions: Discharge Instructions: Lumbar Please call [facility] ([phone]), your Primary Care Physician, or report to the ER if you have any of the following symptoms: Fever greater that 101.5, increased pain/redness/drainage/odor for your incision site or any other concerning symptoms. ACTIVITY * May Shower * No Tub Baths * No lifting greater than 10 pounds * No Smoking * No Swimming * No off Ground Activities (Running, Climbing, Ladders, Horseback Riding) * No Driving * Wear Back Brace when up walking if lumbar fusion done MEDICATIONS: Upon discharge resume your home medications. Take all the medications as prescribed. Take a stool softener if taking narcotic pain medications. Stool softeners are only effective if you drink enough fluids. Drink 6-8 glass of water or fluids a day, unless this is not allowed for another health problem. Despite using stool softeners, if you haven't had a bowel movement in 3 days, please switch to a gentle laxative. Gentle laxatives are sold over the counter. You should have a bowel movement within 24 hours, if not call the office. You will be discharged from the hospital with a prescription for pain medication. You are encouraged to decrease the use of narcotic pain medication as tolerated. Should you require a refill, please call the office. It is best to call 48-72 hours in advance of needing a prescription refill so you don't run out of medication. WOUND CARE: Remove Dressing Tomorrow. Leave incision open to air. Pat dry when you get out of the shower. FOLLOW-UP: Please follow up with your surgeon in the orthopedic clinic in 2 weeks from the day of surgery. References: [employer] (www.apta.org) - Diet and Activity Activity: as per physical therapy Diet: advance to your usual diet - Hospital Course Hospital course: Mr. Collado is a 61 year old male The patient had an uneventful postoperative course. Progressed from intravenous analgesic needs to oral analgesic needs only. Remained neurovascularly intact and mobilized satisfactorily. All intraoperative and/or postoperative radiographic studies were satisfactory. Patient is discharged with plan for rehabilitation and follow-up in 2 weeks post discharge on analgesic medication and patient's home medications. - Time Spent with Patient Total time spent providing and/or coordinating discharge services: - VTE Documentation of Mechanical Device: Intermittent pneumatic compression device
== END 2017-08-02 16:46 | disposition home or self-care (01) ==
LOC: 3BNU → 3NENU 07-31 16:22
PROVIDERS: ADMIT Orthopaedic Surgery Orthopaedic Surgery of the Spine; ATTEND Orthopaedic Surgery Orthopaedic Surgery of the Spine

== ENCOUNTER 2018-03-27 06:25 | Inpatient (IN) ==
[~2018-03-27 06:25] MED LIST: Bacitracin 50,000 UNIT, Polymyxin B Sulfate 500,000 UNIT, Sodium Chloride IRRigation 1,... IR ONE
[2018-03-27] MEDS ORDERED: CeFAZolin Syr 2,000MG/20 ML 2,000 MG/20 ML SYRINGE IVPB ONE (06:46)
[2018-03-27] MEDS ORDERED: Ringers Solution, Lactated 1,000 ML IVC SCH (07:00)
[2018-03-27] MEDS ORDERED: Ondansetron 4 MG/2 ML VIAL ONE (07:04)
[2018-03-27] MEDS ORDERED: *HR* Propofol 200 MG/20 ML VIAL IVP ONE ×2 (07:04→11:41)
[2018-03-27] MEDS ORDERED: Lidocaine -MPF 2% 2 ML VIAL ONE (07:04)
[2018-03-27] MEDS ORDERED: *HR* Midazolam HCl 2 MG/2 ML VIAL ONE (07:04)
[2018-03-27] MEDS ORDERED: *HR* FentaNYL (PF) 100 MCG/2 ML VIAL ONE ×2 (07:04→13:25)
[2018-03-27] MEDS ORDERED: *HR* Succinylcholine 200 MG/10 ML VIAL IVP ONE (07:04)
[2018-03-27] MEDS ORDERED: Lidocaine -MPF 4% 5 ML AMPUL ONE (07:08)
[2018-03-27] MEDS ORDERED: Dexamethasone 4 MG/ML VIAL ONE (07:10)
[2018-03-27] MEDS ORDERED: *HR* Remifentanil 1 MG VIAL IVP ONE (07:11)
--- NOTE | 2018-03-27 07:32 | Anesthesia Evaluation PreOp ---
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: Other (back and neck issues, hx of myelopathy with improvement in strength since surgery, hx multiple back surgeries) Other Medical History: Denies Any Significant HX Anesthesia History: No Prior Anesthetic Complications Alcohol Use: none Drug use: none Medications and Allergies BuPROPion XL (24 HR) [Wellbutrin Xl] 300 mg PO DAILY 06/27/17 [History] DULoxetine [Cymbalta] 90 mg PO DAILY 06/27/17 [History] Diclofenac Sodium (24 HR) [Voltaren XR] 100 mg PO DAILY 06/27/17 [History] Fenofibrate Nanocrystallized [Tricor] 145 mg PO DAILY 06/27/17 [History] [place]-3/Dha/Epa/Fish Oil [Fish Oil 1,000 mg Softgel] 2,000 mg PO DAILY 06/27/17 [History] Simvastatin [Zocor] 40 mg PO HS 06/27/17 [History] Baclofen [Lioresal] 10 mg PO Q8H PRN 07/30/17 [History] HYDROcodone/Acet 10/325 mg [[place] 10-325 mg] 1 tab PO Q6HR PRN 07/30/17 [History ] 3 Allergy/AdvReac Type Severity Reaction Status Date / Time No Known Allergies Allergy Verified 06/27/17 15:05 - Meds/Allergy Pre-op Review Medications Reviewed: Yes Allergies Reviewed: Yes Beta Blockers on Current Med List: No Anesthesia Results - Labs Laboratory Tests 03/22/18 03/22/18 03/22/18 15:40 15:40 15:40 WBC 7.0 Hgb 13.2 Hct 40.8 Plt Count 243 PT 10.4 INR 1.0 APTT 30.8 Sodium 136 Potassium 4.1 Chloride 102 Carbon Dioxide 28 BUN 14 Creatinine 1.13 Est GFR ( Amer) > 60 Est GFR (Non-Af Amer) > 60 BUN/Creatinine Ratio 12 - Imaging EKG: report reviewed, image reviewed (SINUS RHYTHM NONSPECIFIC T-WAVE ABNORMALITY) Anesthesia Exam Last Vital Signs Temp 98.4 F 03/27/18 06:42 Pulse 74 03/27/18 06:42 Resp 18 03/27/18 06:42 BP 150/90 03/27/18 06:42 Pulse Ox 98 03/27/18 06:42 Weight: 96 kg NPO (# of Hours): > 8 hrs - HEENT Pupil (Motor): Pupils equal, EOMI Mallampati: II Teeth: Edentulous Denture Type: Upper: Complete, Lower: Complete Oral Opening: Greater than 3 (decreased neck ROM due to cervical fusion) - OVERNIGHT HOUSEPERSON LOC: Oriented OVERNIGHT HOUSEPERSON Motor: Deficit RLE, Deficit LLE OVERNIGHT HOUSEPERSON Sensory: Deficit: RLE - Cardiac Rhythm: Regular Murmur: None - Pulmonary Breath Sounds: bilateral Clear Respiratory Effort: Symmetrical Anesthesia Assess/Plan ASA Score: 2 Modified [place] Scale for Level of Consciousness: Cooperative, oriented, and tranquil Anesthetic Plan: General, Precautions (c-mac due to decreased neck ROM) Monitoring Plan: Standard Monitors Recovery Plan: PACU
[2018-03-27] MEDS ORDERED: *HR* Magnesium Sulfate 1 GM/2 ML VIAL ONE (07:48)
[2018-03-27] MEDS ORDERED: Acetaminophen IV 1,000 MG/100 ML INFUS..BTL ONE (07:51)
[2018-03-27] MEDS ORDERED: *HR* FentaNYL PATCH 50 MCG PATCH TD SCH (08:00)
--- NOTE | 2018-03-27 08:05 | History & Physical Report ---
Date of Encounter: 03/27/18 Time of Encounter: 08:04 24 Hour HP Update - Instructions Instructions: If the History and Physical is less than 30 days old and was completed prior to A.M. admission and or procedure and has NOT been updated on calendar day of procedure please complete this update prior to performing procedure. - Update Patient reports changes in Medical Condition: No Changes in examination, assessment, or condition: No Changes in Medication: No Preop tests/diagnostics Reviewed: Yes Pre-Op MRSA Screen: Negative Surgery Remains Indicated: Yes Consent for Planned Operative Procedure(s) Verified: Yes - Pre-Operative Checklist Preoperative Checklist Indicated: No Prophylactic Antibiotic Ordered: Yes Home Medications Include Beta Lilia: No Beta Lilia Taken Today (Day of Surgery): No Beta Lilia Taken Yesterday (Day Prior to Surgery): No Is VTE Prophylaxis Indicated?: Yes
[2018-03-27] MEDS ORDERED: *HR* FentaNYL PATCH 50 MCG PATCH TD ONE (08:07)
[2018-03-27] MEDS ORDERED: *HR* Labetalol 100 MG/20 ML MDV IVP PRN (08:34)
[2018-03-27] MEDS ORDERED: *HR* OxyCODONE Immed Rel 5 MG TABLET PO PRN ×2 (08:34→14:50)
[2018-03-27] MEDS ORDERED: *HR* Promethazine 25 MG/ML VIAL IVP PRN (08:34)
[2018-03-27] MEDS ORDERED: *HR* Meperidine 25 MG/ML SYRINGE IVP PRN (08:34)
[2018-03-27] MEDS ORDERED: EPHEDrine 50 MG/ML VIAL ONE (09:06)
[2018-03-27] MEDS ORDERED: *HR* PHENYLEPHRINE 1,000 MCG/10 ML SYRINGE IVP ONE ×2 (09:19→10:23)
[2018-03-27] MEDS ORDERED: Ketorolac 30 MG/ML VIAL ONE (11:26)
[2018-03-27] MEDS ORDERED: Esmolol 100 MG/10 ML VIAL IVP ONE (11:32)
--- NOTE | 2018-03-27 11:43 | Orthopedic Operative Note ---
Date of procedure: 03/27/18 Pre-op diagnosis: Adjacent level lumbar stenosis, lumbar radiculopathy, s/p lumbar fusion, Post-op diagnosis: same Operation/Findings: Exploration of fusion, removal of hardware, posterior lumbar interbody fusion L3 - L4: The patient successfully underwent general endotracheal anesthesia. The patient was given antibiotics prior to the start of the procedure. Compression boots and stockings were used for deep vein thrombosis prophylaxis. A Olmos catheter was placed. Leads for neuro monitoring were placed on the upper and lower extremities. This included the cranium. The neuro monitoring personnel confirmed there were satisfactory readings prior to the start of the procedure. The patient was turned prone on the Julio table. The back was prepped and draped in the usual sterile fashion. An incision was was marked and centered over the involved L3-L5 levels in the mid line. The incision was deepened through the lumbar fascia. Bovie cautery and Merino elevators were used to reflect the paraspinal musculature at the lateral extent of the transverse processes of the involved L3, L4, and L5 levels. Babs clamps were placed over the L3 and L4 spinous processes. An intraoperative lateral fluorograph was obtained. A conversation was held between the surgeon and radiologist and both confirmed we had the correct operative levels. We exposed and explored and palpated the instrumentation and fusion at L4-5 level. There appeared to be an arthrodesis. We exposed and removed the bilateral rods instrumentation at L4- 5. We then placed pedicle screws in standard fashion with the aid of fluoroscopy and anatomic landmarks. Briefly a starter awl was used. A gearshift was subsequently used to enter the rotor pilot hole via a transpedicular route into the vertebral body. The rotor pilot hole was tapped with an undersized instrument, and subsequently towo 6.5 x 40 mm pedicle screws were placed bilaterally at the indicated L3 levels. The screws were tested with the aid of the neurologic monitoring staff via pedicle screw stimulation. All reading suggested there was no significant cortical wall breech. The screws were also evaluated fluoro- graphically and appeared to be in satisfactory position. We then turned our attention to the decompression portion of the procedure. We removed the supraspinous and interspinous ligaments and subsequently the insertion of the ligamentum flavum on the undersurface of the proximal L3 lamina was dislodged with a curette. We then removed the ligamentum flavum as well as undercut the L3-L4 facets at this level to decompress the lateral recesses. We also performed a L3 laminectomy. After the decompression, which was over and above that which was required to place the interbody graft, the foramen and traversing roots at this L3-L4 level were found to be free and patent. We also took part of the medial facets in order to aid in the decompression. We then protected the neural elements including the thecal sac and traversing nerve root on the right with a dural retractor. We made an annulotomy into the L3-L4 disc space and then removed entire disc material using Pituitary instruments. We trialed various size grafts after the endplates were prepared for graft insertion. A 10 x 26 enter body graft fit well within the L3-L4 disc space. We obtained some bone from the right posterior superior iliac spine through us a separate incision and combined with this with the bone which we had saved from the laminectomy portion of the procedure. This autograft bone was first placed in the anterior portion of the L3-L4 disc space and additional bone was placed within the interbody graft spacer. We then placed the interbody graft spacer obliquely across the L3-L4 disc space towards the midline while protecting the neural elements with a root retractor. When the graft was found to be in satisfactory position the knife setter grinder machine was removed. We then copiously irrigated the wound. We removed the right L4 screw because it was mildly loose. We then decorticated the transverse processes at L3 and L4 as well as the L3-L4 facet joints of the involved L3 and L4 levels to aid in the posterolateral fusion. We placed autograft bone in the lateral gutters over these regions. We then placed rods within the screw heads of the involved L3-L5 levels and first locked the distal screws and then subsequently locked the proximal screws We then closed the wound in layers with 1 Vicryl for the fascia, 2-0 Vicryl. Subcutaneous tissue, and Dermabond was used for skin closure. Sterile dressings were placed over the wound. The patient was turned supine on a hospital bed and extubated. All sponge instruments and needle counts were correct at the end of the procedure. The patient tolerated the procedure well without complications. Anesthesia: GETA Surgeon: Antonio Eddy Jr Was there an clerical assistant present: No Estimated blood loss (cc): 125 Specimen: None Condition: stable Disposition: PACU
[2018-03-27] MEDS: *HR* Morphine 2 MG/ML SYRINGE IVP PRN ×5 (12:05→12:25)
[2018-03-27] MEDS: *HR* HYDROmorphone (PF) 1 MG/ML SYRINGE IVP PRN ×4 (12:45→13:00)
[2018-03-27] MEDS ORDERED: *HR* FentaNYL (PF) 100 MCG/2 ML VIAL IVP PRN (13:35)
--- NOTE | 2018-03-27 13:40 | Anesthesia Evaluation Post Op ---
Date of Encounter: 03/27/18 Time of Encounter: 13:39 - Vital Signs Vital Signs: Last Vital Signs Temp 98.9 F 03/27/18 13:23 Pulse 72 03/27/18 13:33 Resp 16 03/27/18 13:33 BP 115/67 03/27/18 13:33 Pulse Ox 96 03/27/18 13:33 - Lungs Lungs: Clear Ascult./Percussion - Airway Airway: Non-obstructed - Cardiovascular Regular Rate - Mental Status Mental Status: Alert & Oriented, Answers Appropriately - Pain Pain Scale: 5 - Nausea Vomiting Nausea Vomiting: Not Present - Hydration Hydration: Ice chips - Discharge PostOp Status: Transfer Patient to floor
[2018-03-27] MEDS ORDERED: Naloxone 0.4 MG/ML INJ IVP PRN (14:50)
[2018-03-27] MEDS ORDERED: Ondansetron 4 MG/2 ML VIAL IVP PRN (14:50)
[2018-03-27] MEDS: Ringers Solution, Lactated 1,000 ML IVC SCH (17:06)
[2018-03-27] MEDS: *HR* OxyCODONE Immed Rel 5 MG TABLET PO PRN (21:52)
[2018-03-27] MEDS ORDERED: Temazepam 15 MG CAPSULE PO PRN (22:01)
[2018-03-28] MEDS: Acetaminophen IV 1,000 MG/100 ML INFUS..BTL IVPB PRN (00:40)
[2018-03-28] MEDS: diazePAM 5 MG TABLET PO PRN ×3 (02:12→20:09)
[2018-03-28] MEDS: Ringers Solution, Lactated 1,000 ML IVC SCH (03:15)
[2018-03-28 04:00] LABS: Basophils % 0.1 %; Hematocrit 28.8 % (37.5-50.1); Immature Granulocytes % 0.5 % (0-4); Lymphocytes # 1.7 K/mcL (0.6-4.6); Mean Corpuscular HGB Conc 32.3 g/dL (31.6-35.5); Mean Corpuscular Hemoglobin 30.3 pg (28.0-33.3); Mean Corpuscular Volume 93.8 fL (83.0-100.0); Mean Platelet Volume 10.2 fL (9.4-12.4); Monocytes # 0.8 K/mcL (0.0-1.3); Monocytes % 5.7 %; Neutrophils # 10.7 K/mcL (1.6-8.9); Platelet Count 186 K/mcL (140-400); Red Blood Count 3.07 M/mcL (4.19-5.50); Red Cell Distribution Width 13.3 % (11.5-14.5); Segmented Neutrophils % 80.7 %
[2018-03-28 04:04] LABS: Hemoglobin 9.3 g/dL (12.9-16.9)
[2018-03-28 04:21] LABS: BUN/Creatinine Ratio 13 (6-26); Blood Urea Nitrogen 14 mg/dL (8-23); Calcium 8.6 mg/dL (8.6-10.3); Carbon Dioxide 26 mEq/L (23-29); Chloride 107 mEq/L (98-107); Glucose 126 mg/dL (70-105); Osmolality,Calculated 292 (280-300); Potassium 3.8 mEq/L (3.5-5.1); Sodium 140 mEq/L (136-145); eGFR For African Americans > 60 (> 60); eGFR For Non-African Americans > 60 (> 60)
[2018-03-28] MEDS: *HR* OxyCODONE Immed Rel 5 MG TABLET PO PRN ×3 (07:08→16:22)
[2018-03-28] MEDS: BuPROPion XL (24 HR) 150 MG TABLET PO SCH (07:54)
[2018-03-28] MEDS: Diclofenac Sodium (24 HR) 100 MG TABLET PO SCH (07:54)
[2018-03-28] MEDS: Fenofibrate 54 MG TABLET PO SCH (07:54)
--- NOTE | 2018-03-28 09:12 | Orthopedics Progress Note ---
Date of Encounter: 03/28/18 Time of Encounter: 08:50 - Assessment and Plan (1) Lumbar stenosis Current Visit: Yes Status: Chronic Adjacent level Qualifiers: Neurogenic claudication status: unspecified Qualified Code(s): M48.061 - Spinal stenosis, lumbar region without neurogenic claudication (2) Lumbar radiculopathy Current Visit: Yes Status: Chronic (3) Status post lumbar spinal fusion Current Visit: Yes Status: Acute Subjective Principal diagnosis: right leg pain Interval history: POD#1 Date of procedure: 03/27/18 Pre-op diagnosis: Adjacent level lumbar stenosis, lumbar radiculopathy, s/p lumbar fusion, Post-op diagnosis: same Operation/Findings: Exploration of fusion, removal of hardware, posterior lumbar interbody fusion L3 - L4 The patient complains of right thigh pain with motion. He states that this hurts mostly in when he flexes the hip however his motion is intact. He states it feels more like spasms. Afebrile vital signs are stable. Incision is clean dry and intact. Neurovascularly intact with regard to bilateral lower extremities. Fires all upper and lower extremity motor groups. Assessment: Stable postoperative. Muscle spasm - appears to be neurogenic at this point as occuring with muscle activation to the L4 distribution. Plan: Reviewed postoperative restrictions and precautions. Patient verbalized understanding. Brace present and patient aware to apply with activity. Mobilize with therapy Continue analgesics as needed Discharge planning - awaiting therapy recommendations Radiographs pending Will adjust medication regimen to help with spasming. Objective Vital signs: Vital Signs Temp Pulse Resp BP Pulse Ox 03/28/18 07:19 98.6 F 72 18 140/68 96 03/27/18 23:18 99.0 F 102 16 149/81 99 03/27/18 18:21 97.9 F 77 16 127/67 93 03/27/18 16:15 75 18 128/78 95 03/27/18 15:15 77 15 132/59 95 03/27/18 14:45 98.3 F 74 14 118/71 94 03/27/18 14:35 93 03/27/18 14:30 72 15 112/66 93 03/27/18 14:15 97 14 109/53 96 03/27/18 14:00 97.9 F 92 14 119/60 97 03/27/18 13:52 98.9 F 84 16 104/74 97 03/27/18 13:43 85 16 121/58 97 03/27/18 13:33 72 16 115/67 96 03/27/18 13:23 98.9 F 77 16 103/73 96 03/27/18 13:13 91 16 102/65 95 03/27/18 13:03 89 16 107/70 95 03/27/18 12:53 98.9 F 90 16 114/79 97 03/27/18 12:43 88 16 123/79 97 03/27/18 12:33 88 16 109/78 94 03/27/18 12:23 98.9 F 90 16 115/69 97 03/27/18 12:13 93 16 123/74 97 03/27/18 12:03 94 16 109/78 97 03/27/18 11:53 99.0 F 94 14 115/70 100 Intake and Output 03/27/18 03/28/18 03/28/18 23:59 07:59 15:59 Intake Total 350 / 350 1000 / 1000 Output Total 750 / 750 Balance -400 / -400 1000 / 1000 Intake: IV Fluids 100 / 100 1000 / 1000 Lactated Ringers 1,000 ML @ 100 1000 / 1000 mls/hr IVC .Q10H [facility] Rx#: [id number] Ancef 2,000 MG In 0.9 % Sodium 100 / 100 Chloride 100 ML @ 200 mls/hr IVPB Q8HR [facility] Rx#:[id number] Oral 250 / 250 Output: Catheter 750 / 750 - Labs CBC & BMP: 03/28/18 03:29 03/28/18 03:29 Labs: Abnormal lab results WBC 13.3 K/mcL (4.3-11.1) H D 03/28/18 03:29 RBC 3.07 M/mcL (4.19-5.50) L 03/28/18 03:29 Hgb 9.3 g/dL (12.9-16.9) L D 03/28/18 03:29 Hct 28.8 % (37.5-50.1) L 03/28/18 03:29 Neutrophils # 10.7 K/mcL (1.6-8.9) H 03/28/18 03:29 Glucose 126 mg/dL (70-105) H 03/28/18 03:29 - VTE Documentation of Mechanical Device: Intermittent pneumatic compression device Consult Discharge Plan - Plan Referrals: ColopyKoffi DO [Primary Care Provider] -
[2018-03-29] MEDS: *HR* OxyCODONE Immed Rel 5 MG TABLET PO PRN ×2 (01:03→05:35)
[2018-03-29] MEDS: Acetaminophen IV 1,000 MG/100 ML INFUS..BTL IVPB PRN (01:41)
[2018-03-29] MEDS: diazePAM 5 MG TABLET PO PRN ×3 (05:35→17:40)
--- NOTE | 2018-03-29 08:49 | Orthopedics Progress Note ---
Date of Encounter: 03/29/18 Time of Encounter: 08:47 - Assessment and Plan (1) Lumbar stenosis Current Visit: Yes Status: Chronic Adjacent level Qualifiers: Neurogenic claudication status: unspecified Qualified Code(s): M48.061 - Spinal stenosis, lumbar region without neurogenic claudication (2) Lumbar radiculopathy Current Visit: Yes Status: Chronic (3) Status post lumbar spinal fusion Current Visit: Yes Status: Acute Subjective Principal diagnosis: right leg pain Interval history: POD#2 Date of procedure: 03/27/18 Pre-op diagnosis: Adjacent level lumbar stenosis, lumbar radiculopathy, s/p lumbar fusion Post-op diagnosis: same Operation/Findings: Exploration of fusion, removal of hardware, posterior lumbar interbody fusion L3- L4 The patient complains of right thigh pain with motion. He states that he believes something is wrong. However, when discussing the right thigh pain he states that this hurts mostly in when he flexes the hip however his motion is intact. He states it feels more like spasms - however he notes that they are less frequent this morning and not as tender to palpation as it was yesterday. Afebrile vital signs are stable. Incision is clean dry and intact. Neurovascularly intact with regard to bilateral lower extremities. Fires all upper and lower extremity motor groups. Nursing did make this provider where the patient is how to straight catheter yesterday. It does appear though that he has been voiding independently as of this morning. Assessment: Stable postoperative. Muscle spasm - continues to appear to be neurogenic at this point as occurring with muscle activation to the L4 distribution. Urinary retention 1 episode on 03/28/18 - relieved with straight catheter Plan: Reviewed postoperative restrictions and precautions. Patient verbalized understanding. Brace present and patient aware to apply with activity. Mobilize with therapy Continue analgesics as needed - encouraged patient to participate with therapy as well to help with pain. Discharge planning - home with self care per therapy recommendation Radiographs pending It appears medication adjustment was helpful with some of the spasming. We will encourage continuation of this regimen with discharge. Objective Vital signs: Vital Signs Temp Pulse Resp BP Pulse Ox 03/29/18 07:10 97.6 F 80 14 134/65 95 03/29/18 04:02 98.7 F 85 18 112/48 93 03/29/18 01:05 99.9 F H 100 20 131/69 94 03/28/18 19:06 98.5 F 72 18 111/65 97 03/28/18 16:40 98.1 F 65 17 109/67 96 03/28/18 11:26 98.2 F 84 18 125/69 92 Intake and Output 03/28/18 03/29/18 03/29/18 23:59 07:59 15:59 Intake Total 640 / 640 750 / 750 Output Total 750 / 750 450 / 450 Balance -110 / -110 300 / 300 Intake: IV Fluids 100 / 100 Ofirmev 1,000 mg/100 ml 1,000 100 / 100 mg In 100 ml @ 400 mls/hr IVPB Q6HR PRN Rx#:[id number] Oral 640 / 640 650 / 650 Output: Urine 50 / 50 450 / 450 Straight Cath 700 / 700 Other: Meal Dinner Percent of Meal Consumed 100% - Labs CBC & BMP: 03/28/18 03:29 03/28/18 03:29 Labs: Abnormal lab results WBC 13.3 K/mcL (4.3-11.1) H D 03/28/18 03:29 RBC 3.07 M/mcL (4.19-5.50) L 03/28/18 03:29 Hgb 9.3 g/dL (12.9-16.9) L D 03/28/18 03:29 Hct 28.8 % (37.5-50.1) L 03/28/18 03:29 Neutrophils # 10.7 K/mcL (1.6-8.9) H 03/28/18 03:29 Glucose 126 mg/dL (70-105) H 03/28/18 03:29 - VTE Documentation of Mechanical Device: Intermittent pneumatic compression device Consult Discharge Plan - Plan Referrals: ColopyKoffi DO [Primary Care Provider] -
[2018-03-29] MEDS ORDERED: Acetaminophen 325 MG TABLET PO PRN (08:52)
[2018-03-29] MEDS ORDERED: Acetaminophen IV 1,000 MG/100 ML INFUS..BTL IVPB PRN (08:54)
[2018-03-29] MEDS: Fenofibrate 54 MG TABLET PO SCH (09:19)
[2018-03-29] MEDS: Diclofenac Sodium (24 HR) 100 MG TABLET PO SCH (09:19)
[2018-03-29] MEDS: BuPROPion XL (24 HR) 150 MG TABLET PO SCH (09:20)
[2018-03-29] MEDS: Ringers Solution, Lactated 1,000 ML IVC SCH ×2 (12:40→12:41)
--- NOTE | 2018-03-30 06:49 | Orthopedics Progress Note ---
Date of Encounter: 03/30/18 Time of Encounter: 06:48 Subjective Principal diagnosis: right leg pain Interval history: Patient seen this morning complains of increased pain right lower extremity. On exam right lower extremity is neurovascularly intact X-rays reported yesterday to the unchanged. We will discuss case with Dr. Eddy to determine plan Objective Vital signs: Vital Signs Temp Pulse Resp BP Pulse Ox 03/30/18 04:57 97.7 F 64 16 126/76 96 03/30/18 01:18 98.2 F 67 16 104/62 97 03/29/18 20:12 98 03/29/18 19:11 98.0 F 65 18 113/50 98 03/29/18 15:57 97.6 F 75 14 113/69 96 03/29/18 11:03 97.6 F 89 16 119/65 96 03/29/18 09:36 95 03/29/18 07:10 97.6 F 80 14 134/65 95 Intake and Output 03/29/18 03/29/18 03/30/18 15:59 23:59 07:59 Intake Total 100 / 100 350 / 350 Output Total 600 / 600 275 / 275 900 / 900 Balance -500 / -500 75 / 75 -900 / -900 Intake: IV Fluids 100 / 100 Ofirmev 1,000 mg/100 ml 1,000 100 / 100 mg In 100 ml @ 400 mls/hr IVPB BID PRN Rx#:[id number] Oral 350 / 350 Output: Urine 600 / 600 275 / 275 900 / 900 Other: Weight 98.7 kg Patient Weight 03/30/18 23:59 Weight 98.7 kg - Labs CBC & BMP: 03/28/18 03:29 03/28/18 03:29 Labs: Abnormal lab results WBC 13.3 K/mcL (4.3-11.1) H D 03/28/18 03:29 RBC 3.07 M/mcL (4.19-5.50) L 03/28/18 03:29 Hgb 9.3 g/dL (12.9-16.9) L D 03/28/18 03:29 Hct 28.8 % (37.5-50.1) L 03/28/18 03:29 Neutrophils # 10.7 K/mcL (1.6-8.9) H 03/28/18 03:29 Glucose 126 mg/dL (70-105) H 03/28/18 03:29 - VTE Documentation of Mechanical Device: Intermittent pneumatic compression device Consult Discharge Plan - Plan Referrals: ColopyKoffi DO [Primary Care Provider] -
[2018-03-30] MEDS: *HR* FentaNYL PATCH 50 MCG PATCH TD SCH (07:55)
[2018-03-30] MEDS: BuPROPion XL (24 HR) 150 MG TABLET PO SCH (07:55)
[2018-03-30] MEDS: Diclofenac Sodium (24 HR) 100 MG TABLET PO SCH (07:56)
[2018-03-30] MEDS: Fenofibrate 54 MG TABLET PO SCH (07:56)
[2018-03-30] MEDS: diazePAM 5 MG TABLET PO PRN ×2 (09:18→15:25)
[2018-03-30] MEDS: *HR* OxyCODONE Immed Rel 5 MG TABLET PO PRN (22:48)
--- NOTE | 2018-03-31 07:52 | Orthopedics Progress Note ---
Date of Encounter: 03/31/18 Time of Encounter: 07:52 Subjective Principal diagnosis: right leg pain Interval history: Patient seen this morning complains of increased pain right lower extremity. On exam right lower extremity is neurovascularly intact Patient will be evaluated by Dr. Eddy today Objective Vital signs: Vital Signs Temp Pulse Resp BP Pulse Ox 03/31/18 06:29 98.1 F 73 16 156/83 94 03/31/18 04:13 97.9 F 75 16 161/87 95 03/31/18 01:03 97.9 F 72 16 161/89 95 03/30/18 21:13 97.7 F 64 16 150/98 96 03/30/18 16:46 97.7 F 81 18 122/77 95 03/30/18 12:00 97.7 F 78 16 125/72 97 03/30/18 08:06 98 Intake and Output 03/30/18 03/30/18 03/31/18 15:59 23:59 07:59 Intake Total 240 / 240 240 / 240 Output Total 700 / 700 400 / 400 900 / 900 Balance -460 / -460 -160 / -160 -900 / -900 Intake: Oral 240 / 240 240 / 240 Output: Urine 700 / 700 400 / 400 900 / 900 Other: Meal Lunch Dinner Percent of Meal Consumed 100% 80% Weight 96.8 kg Patient Weight 03/31/18 23:59 Weight 96.8 kg - Labs CBC & BMP: 03/28/18 03:29 03/28/18 03:29 Labs: Abnormal lab results WBC 13.3 K/mcL (4.3-11.1) H D 03/28/18 03:29 RBC 3.07 M/mcL (4.19-5.50) L 03/28/18 03:29 Hgb 9.3 g/dL (12.9-16.9) L D 03/28/18 03:29 Hct 28.8 % (37.5-50.1) L 03/28/18 03:29 Neutrophils # 10.7 K/mcL (1.6-8.9) H 03/28/18 03:29 Glucose 126 mg/dL (70-105) H 03/28/18 03:29 - VTE Documentation of Mechanical Device: Graduated compression elastic hosiery Consult Discharge Plan - Plan Referrals: Koffi Bustamante DO [Primary Care Provider] -
[2018-03-31] MEDS: Diclofenac Sodium (24 HR) 100 MG TABLET PO SCH (08:51)
[2018-03-31] MEDS: Fenofibrate 54 MG TABLET PO SCH (08:51)
[2018-03-31] MEDS: BuPROPion XL (24 HR) 150 MG TABLET PO SCH (08:51)
[2018-03-31] MEDS: diazePAM 5 MG TABLET PO PRN ×2 (08:57→17:46)
[2018-03-31] MEDS: *HR* OxyCODONE Immed Rel 5 MG TABLET PO PRN (19:06)
[2018-04-01] MEDS: Fenofibrate 54 MG TABLET PO SCH (07:42)
[2018-04-01] MEDS: BuPROPion XL (24 HR) 150 MG TABLET PO SCH (07:42)
[2018-04-01] MEDS: Diclofenac Sodium (24 HR) 100 MG TABLET PO SCH (07:42)
[2018-04-01] MEDS: *HR* OxyCODONE Immed Rel 5 MG TABLET PO PRN ×2 (07:43→15:19)
[2018-04-01] MEDS: diazePAM 5 MG TABLET PO PRN (13:10)
[2018-04-02] MEDS: *HR* FentaNYL PATCH 50 MCG PATCH TD SCH (08:32)
[2018-04-02] MEDS: Diclofenac Sodium (24 HR) 100 MG TABLET PO SCH (08:32)
[2018-04-02] MEDS: BuPROPion XL (24 HR) 150 MG TABLET PO SCH (08:32)
[2018-04-02] MEDS: Fenofibrate 54 MG TABLET PO SCH (08:33)
[2018-04-02] MEDS: *HR* OxyCODONE Immed Rel 5 MG TABLET PO PRN ×2 (08:33→15:49)
--- NOTE | 2018-04-02 13:21 | Discharge Summary ---
Orders not resulted at time of discharge: Pending orders 03/27/18 11:01 XR fluoroscopy <1 hr [XR] Routine Date of Encounter: 04/03/18 Time of Encounter: 08:35 - Discharge Diagnosis (1) Lumbar stenosis Priority: Primary Status: Chronic Qualifiers: Neurogenic claudication status: unspecified Qualified Code(s): M48.061 - Spinal stenosis, lumbar region without neurogenic claudication (2) Lumbar radiculopathy Priority: Primary Status: Chronic (3) Status post lumbar spinal fusion Priority: Primary Status: Acute - Hospital Course Hospital course: Mr. Collado is a 62 year old male status post Date of procedure: 03/27/18 Pre-op diagnosis: Adjacent level lumbar stenosis, lumbar radiculopathy, s/p lumbar fusion, Post-op diagnosis: same Operation/Findings: Exploration of fusion, removal of hardware, posterior lumbar interbody fusion L3- L4 The patient had an uneventful postoperative course. He did develop some right thigh pain that is believed to be secondary to retraction following the surgery. This is improved with medication regimen. Progressed from intravenous analgesic needs to oral analgesic needs only. Remained neurovascularly intact and mobilized satisfactorily. All intraoperative and/or postoperative radiographic studies were satisfactory. Patient is discharged with plan for rehabilitation and follow-up in 2 weeks post discharge on analgesic medication and patient's home medications. - Time Spent with Patient Total time spent providing and/or coordinating discharge services: - Discharge Medications Prescriptions: diazePAM [Valium] 5 mg PO Q6HR PRN 7 Days #28 tablet PRN Reason: Spasms OxyCODONE Immed Rel [Roxicodone 5 MG] 5 mg PO Q6HR PRN 7 Days #28 tablet PRN Reason: Severe Pain Cyclobenzaprine [Flexeril] 10 mg PO TID PRN 7 Days #21 tablet PRN Reason: Spasms Lidocaine Patch [Lidoderm 5% patch] 1 each TP DAILY 30 Days #30 adh..patch Home Medications: BuPROPion XL (24 HR) [Wellbutrin Xl] 450 mg PO DAILY 06/27/17 [History] DULoxetine [Cymbalta] 90 mg PO DAILY 06/27/17 [History] Fenofibrate Nanocrystallized [Tricor] 145 mg PO DAILY 06/27/17 [History] [place]-3/Dha/Epa/Fish Oil [Fish Oil 1,000 mg Softgel] 2,000 mg PO DAILY 06/27/17 [History] Simvastatin [Zocor] 40 mg PO HS 06/27/17 [History] HYDROcodone/Acet 10/325 mg [[place] 10-325 mg] 1 tab PO Q6HR PRN 07/30/17 [History ] Meloxicam 15 mg PO DAILY 03/28/18 [History] Acetaminophen [Tylenol] 650 mg PO Q6HR PRN tablet 04/02/18 [Rx] Cyclobenzaprine [Flexeril] 10 mg PO TID PRN 7 Days #21 tablet 04/02/18 [Rx] Docusate [Colace] 100 mg PO BID capsule 04/02/18 [Rx] Lidocaine Patch [Lidoderm 5% patch] 1 each TP DAILY 30 Days #30 adh..patch 04/02 [Rx] OxyCODONE Immed Rel [Roxicodone 5 MG] 5 mg PO Q6HR PRN 7 Days #28 tablet [Rx] diazePAM [Valium] 5 mg PO Q6H PRN 7 Days #28 tablet 04/03/18 [Rx] Allergies/Adverse Reactions: 3 Allergy/AdvReac Type Severity Reaction Status Date / Time No Known Allergies Allergy Verified 03/28/18 07:43 Date of admission: 03/27/18 13:11 Primary care physician: Koffi Bustamante Consults: 03/27/18 14:50 Consult to Physical Therapy [CONS] Routine Comment: Evaluate, develop and implement POC Reason for Consult: Postoperative rehabilitation Does patient have active BEDREST order?: No Is patient medically & hemodynamically stable?: Yes Patient assessed for mobility or mobilized this visit?: No Consult to Spine Navigator [CONS] [CONS] Routine 04/01/18 10:38 Consult to Crawler Crane Operator [CONS] Routine Reason for SW Consult: discharge planning - VTE Documentation of Mechanical Device: Intermittent pneumatic compression device - Impressions ITS Impressions Lumbar Spine X-Ray 03/27/18 11:01 IMPRESSION: No acute abnormality seen. D/ / 03/27/2018 13:41:06 Sheldon Martines MD / ollie Interpreting Provider: Sheldon Martines MD Lumbar Spine X-Ray 03/29/18 08:46 IMPRESSION: Stable alignment status post L3-L5 posterior fusion. No evidence of hardware complication. D/ / Jonathon Brasher MD / Jonathon Brasher MD Interpreting Provider: Jonathon Brasher MD - Patient Status Disposition: Home Health Service Condition: Good Functional capacity at discharge: uses cane/walker Overall status at discharge: patient is progressing back to baseline - Discharge Instructions Instructions: Lumbar Spinal Fusion (DC) Follow Up With: Koffi Bustamante DO [Primary Care Provider] - - Diet and Activity Activity: as per physical therapy Diet: advance to your usual diet
[2018-04-03] MEDS: BuPROPion XL (24 HR) 150 MG TABLET PO SCH (08:05)
[2018-04-03] MEDS: Fenofibrate 54 MG TABLET PO SCH (08:05)
[2018-04-03] MEDS: Diclofenac Sodium (24 HR) 100 MG TABLET PO SCH (08:05)
[2018-04-03] MEDS: *HR* OxyCODONE Immed Rel 5 MG TABLET PO PRN ×2 (08:09→12:45)
[2018-04-03 15:15] VITALS: BP 122/83
--- NOTE | 2018-04-03 16:15 | Orthopedics Progress Note ---
Date of Encounter: 04/02/18 Time of Encounter: 08:35 - Assessment and Plan (1) Lumbar stenosis Current Visit: Yes Status: Chronic Adjacent level Qualifiers: Neurogenic claudication status: unspecified Qualified Code(s): M48.061 - Spinal stenosis, lumbar region without neurogenic claudication (2) Lumbar radiculopathy Current Visit: Yes Status: Chronic (3) Status post lumbar spinal fusion Current Visit: Yes Status: Acute Subjective Principal diagnosis: right leg pain Interval history: POD#6 Date of procedure: 03/27/18 Pre-op diagnosis: Adjacent level lumbar stenosis, lumbar radiculopathy, s/p lumbar fusion Post-op diagnosis: same Operation/Findings: Exploration of fusion, removal of hardware, posterior lumbar interbody fusion L3- L4 The patient complains of right thigh pain with motion. Pain in right thigh is ongoing however is significantly improved compared to evaluation last week. This is then discussed the patient by this provider as well as Dr. Eddy with concern that time is likely going to be the biggest factor in resolution of this pain. Is most likely secondary to retraction following his surgery. He remains neurovascularly intact with no altered sensation per patient. Afebrile vital signs are stable. Incision is clean dry and intact. Neurovascularly intact with regard to bilateral lower extremities. Fires all upper and lower extremity motor groups. Assessment: Stable postoperative. Muscle spasm - improving with Valium Urinary retention 1 episode on 03/28/18 - relieved with straight catheter Plan: Reviewed postoperative restrictions and precautions. Patient verbalized understanding. Brace present and patient aware to apply with activity. Mobilize with therapy Continue analgesics as needed - encouraged patient to participate with therapy as well to help with pain. Discharge planning - home with self care per therapy recommendation - now recommending ECF placement possibly for rehabilitation. Radiographs demonstrate stable hardware It appears medication adjustment was helpful with some of the spasming. We will encourage continuation of this regimen with discharge. Objective Vital signs: Vital Signs Temp Pulse Resp BP Pulse Ox 04/03/18 15:13 97.6 F 88 16 122/83 95 04/03/18 11:09 98.3 F 79 16 97 04/03/18 08:00 95 04/03/18 06:44 98.0 F 82 18 128/75 95 04/03/18 00:16 97.8 F 87 14 123/77 97 04/02/18 20:44 96 04/02/18 20:25 98.0 F 87 14 118/76 96 Intake and Output 04/03/18 04/03/18 04/03/18 07:59 15:59 23:59 Intake Total 300 / 300 336 / 336 Output Total 450 / 450 Balance 300 / 300 -114 / -114 Intake: Oral 300 / 300 336 / 336 Output: Urine 450 / 450 Other: Meal Breakfast Percent of Meal Consumed 0% - Labs CBC & BMP: 03/28/18 03:29 03/28/18 03:29 Labs: Abnormal lab results WBC 13.3 K/mcL (4.3-11.1) H D 03/28/18 03:29 RBC 3.07 M/mcL (4.19-5.50) L 03/28/18 03:29 Hgb 9.3 g/dL (12.9-16.9) L D 03/28/18 03:29 Hct 28.8 % (37.5-50.1) L 03/28/18 03:29 Neutrophils # 10.7 K/mcL (1.6-8.9) H 03/28/18 03:29 Glucose 126 mg/dL (70-105) H 03/28/18 03:29 - VTE Documentation of Mechanical Device: Intermittent pneumatic compression device Consult Discharge Plan - Plan Instructions: Lumbar Spinal Fusion (DC) Referrals: Koffi Bustamante DO [Primary Care Provider] - Prescriptions: diazePAM [Valium] 5 mg PO Q6HR PRN 7 Days #28 tablet PRN Reason: Spasms OxyCODONE Immed Rel [Roxicodone 5 MG] 5 mg PO Q6HR PRN 7 Days #28 tablet PRN Reason: Severe Pain Cyclobenzaprine [Flexeril] 10 mg PO TID PRN 7 Days #21 tablet PRN Reason: Spasms Lidocaine Patch [Lidoderm 5% patch] 1 each TP DAILY 30 Days #30 adh..patch
== END 2018-04-03 18:30 | disposition home health service (06) | DRG 460 ==
LOC: SAMDAY 06:25 → 3NENU 13:11
PROVIDERS: ADMIT Orthopaedic Surgery Orthopaedic Surgery of the Spine; ATTEND Orthopaedic Surgery Orthopaedic Surgery of the Spine